=== PATIENT | male | born 1945 | race Caucasian/White ===

== ENCOUNTER 2017-05-04 03:59 | Emergency (ER) | payer MEDICARE ==
[~2017-05-04] VITALS: Ht 185.4 cm; Wt 108.9 kg
[~2017-05-04 03:59] MED LIST: DIOVAN320 MG PO; FLOMAX0.4 MG PO; LEVOTHYROXINE50 MCG PO; MOBIC7.5 MG PO; NORVASC5 MG PO; PENICILLIN V P500 MG PO
[2017-05-04] MEDS ORDERED: HYDROCODONE/APAP 5MG-325MG TAB PO ONE (04:45)
[2017-05-04] MEDS ORDERED: ONDANSETRON HCL 4 MG ORAL DISINTEGRATING TAB PO ONE (04:45)
[2017-05-04 04:55] LABS: BILIRUBIN,URINE NEGATIVE (NEGATIVE); CLARITY,URINE TURBID (CLEAR); COLOR,URINE AMBER (YELLOW); KETONES,URINE NEGATIVE (NEGATIVE); LEUKOCYTE ESTERASE ,URINE 2+ (NEGATIVE); NITRITE,URINE POSITIVE (NEGATIVE); PROTEIN,URINE DIPSTICK 3+ (NEGATIVE); URINE UROBILINOGEN 0.2 mg/dL (0.2 - 1)
[2017-05-04 05:01] LABS: BACTERIA,URINE MANY /HPF; EPITHELIAL CELLS,URINE RARE /LPF; RBC,URINE >50 /HPF (0-5); WBC,URINE (MAN) >50 /HPF (0-5)
[2017-05-04] MEDS ORDERED: CEFTRIAXONE SOD 1 GM VIAL IM ONE (05:15)
[2017-05-04] MEDS ORDERED: LIDOCAINE HCL 1% LOCAL INJ 20 ML VIAL ONE (05:18)
== END 2017-05-04 06:01 | disposition home or self-care (01) ==
LOC: ER 03:59
DX: R30.0 Dysuria (principal); R10.9 Unspecified abdominal pain; N30.01 Acute cystitis with hematuria; F17.210 Nicotine dependence, cigarettes, uncomplicated
CPT/HCPCS: 81001; 87086; 87186; 99282; J0696; J2001

== ENCOUNTER 2017-10-05 20:24 | Emergency (ER) | payer MEDICARE ==
[~2017-10-05] VITALS: Ht 185.4 cm; Wt 108.9 kg
[2017-10-05] MEDS ORDERED: KETOROLAC TROMETHAMINE 30 MG/ML VIAL IV STA (20:33)
[2017-10-05] MEDS ORDERED: ATORVASTATIN CA20 MG PO (20:35)
[2017-10-05 20:55] LABS: BASOPHILS # (AUTO) 0.1 (0.0-0.1); BASOPHILS % 0.5 % (0.0-1.0); EOSINOPHILS # (AUTO) 0.2 (0.0-0.4); EOSINOPHILS % 1.6 % (0.0-6.0); HEMATOCRIT 43.7 % (38.2-49.6); HEMOGLOBIN 14.8 g/dL (14.0-18.0); LYMPHOCYTES # (AUTO) 2.9 (1.0-3.2); LYMPHOCYTES % 21.2 % (18.0-39.1); MEAN CORPUSCULAR HEMOGLOBIN 30.4 pg (28-32); MEAN CORPUSCULAR HGB CONC 33.9 g/dL (31-35); MEAN CORPUSCULAR VOLUME 89.7 fL (81-99); MONOCYTES # (AUTO) 0.8 (0.2-0.8); MONOCYTES % 5.7 % (4.4-11.3); NEUTROPHILS # (AUTO) 9.7 (2.1-6.9); NEUTROPHILS % 70.6 % (38.7-80.0); PLATELET COUNT 208 x10e3/uL (140-360); RED BLOOD COUNT 4.87 x10e6/uL (4.3-5.7); RED CELL DISTRIBUTION WIDTH 13.4 % (11.7-14.4)
[2017-10-05 21:00] LABS: CLARITY,URINE SL CLOUDY (CLEAR); COLOR,URINE YELLOW (YELLOW)
[2017-10-05 21:01] LABS: BILIRUBIN,URINE NEGATIVE (NEGATIVE); KETONES,URINE NEGATIVE (NEGATIVE); LEUKOCYTE ESTERASE ,URINE 1+ (NEGATIVE); NITRITE,URINE NEGATIVE (NEGATIVE); PROTEIN,URINE DIPSTICK TRACE (NEGATIVE); URINE UROBILINOGEN 0.2 mg/dL (0.2 - 1)
[2017-10-05 21:11] LABS: ALANINE AMINOTRANSFERASE 36 IU/L (0-55); ALBUMIN 3.8 g/dL (3.5-5.0); ALBUMIN/GLOBULIN RATIO 1.3 (0.8-2.0); ALKALINE PHOSPHATASE 87 IU/L (40-150); AMORPHOUS SEDIMENT,URINE FEW (FEW); ANION GAP 10.7 mmol/L (8-16); BACTERIA,URINE MANY /HPF; BLOOD UREA NITROGEN 16 mg/dL (7-26); BUN/CREATININE RATIO 22 (6-25); CALCIUM 9.4 mg/dL (8.4-10.2); CARBON DIOXIDE 29 mmol/L (22-29); CHLORIDE 105 mmol/L (98-107); CREATININE, SERUM 0.74 mg/dL (0.72-1.25); EPITHELIAL CELLS,URINE MODERATE /LPF; EST GLOMERULAR FILTRATION RATE > 60 ML/MIN (60-); GLUCOSE 142 mg/dL (74-118); POTASSIUM 3.7 mmol/L (3.5-5.1); SODIUM 141 mmol/L (136-145)
--- NOTE | 2017-10-05 22:27 | Diagnostic Imaging Report ---
EXAM: US TESTICULAR DOPPLER LTD DATE: 10/05/2017 12:00 AM Time stamp on exam: 2133 hours INDICATION: Left testicular swelling and pain COMPARISON: None TECHNIQUE: Grayscale and color Doppler images of the testicles and scrotal contents were obtained. Arterial and venous flow the testicles evaluated with spectral waveform analysis FINDINGS: RIGHT: The right testicle measures 3.5 x 1.9 x 2.6 cm. No testicular masses. Normal flow by color doppler and spectral waveform analysis of the arterial and venous flow. Normal appearance of the epididymis. Moderate right hydrocele with echogenic debris. No varicocele. LEFT: The left testicle measures 2.7 x 2.7 x 2.5 cm. No testicular masses. Normal flow by color doppler and spectral waveform analysis of the arterial and venous flow. Mildly prominent and hypervascular epididymal head. Large hydrocele with echogenic debris. No varicocele. Incidental left epididymal head cyst measuring 9 mm. IMPRESSION: 1. Normal sonographic appearance of the testicles without evidence of torsion. 2. Possible early left epididymitis. 3. Moderate right and large left hydroceles. Signed by: Dr. Jil Benjamin M.D. on 10/05/2017 10:23 PM
[2017-10-05 22:43] VITALS: BP 138/72
[2017-10-05] MEDS ORDERED: LEVAQUIN500 MG PO (22:43)
== END 2017-10-05 22:57 | disposition home or self-care (01) ==
LOC: ER 20:24
DX: N45.1 Epididymitis (principal); N30.01 Acute cystitis with hematuria
CPT/HCPCS: 36415; 76870; 80053; 81001; 85025; 87086; 87186; 93976; 99283; J1885

== ENCOUNTER 2018-07-07 15:53 | Emergency (ER) | payer MEDICARE ==
[~2018-07-07] VITALS: Ht 185.4 cm; Wt 108.9 kg
[~2018-07-07 15:53] MED LIST changes: +ATORVASTATIN CA20 MG PO; +LEVAQUIN500 MG PO
--- OUTSIDE RECORDS SUMMARY | 2018-07-07 15:57 | XMS REPORT | Continuity of Care Document ---
Author Author [facility] Interface Address Unknown Phone Unavailable Problems Problem Status Onset Date Classification Date Reported Comments Source Medications Medication Details Route Status Patient Instructions Ordering Provider Order Date Source Levothyroxine Sodium 50 Mcg Tablet, 50 Mcg Oral Daily Active 10/05/[address] [facility] Meloxicam (Mobic*) 7.5 Mg Tablet, 7.5 Mg Oral Every 12 Hours Active 10/05/[address] [facility] Penicillin V Potassium 500 Mg Tablet, 500 Mg Oral Three Times A Day Active 10/05/[address] [facility] Tamsulosin Hcl (Flomax*) 0.4 Mg Cap, 0.4 Mg Oral Twice A Day Active 10/05/[address] [facility] Amlodipine Besylate (Norvasc) 5 Mg Tab Daily Active [facility] Atorvastatin Calcium 20 Mg Tablet Daily Active [facility] Levofloxacin (Levaquin) 500 Mg Tablet Daily Active [facility] Valsartan (Diovan) 320 Mg Tablet Daily Active [facility] Allergies, Adverse Reactions, Alerts Substance Category Reaction Severity Reaction type Status Date Reported Comments Source No Known Drug Allergies Unknown Allergy to Substance Active 06/16/[address] [facility] Immunizations Immunization Date Given Site Status Last Updated Comments Source Results Order Name Results Value Reference Range Date Interpretation Comments Source Amorphous sediment detection in urine sediment by light microscopy Amorphous sediment detection in urine sediment by light microscopy FEW FEW 10/05/[address] [facility] Automated blood basophil count (count/volume) Automated blood basophil count (count/volume) 0.1 0.0 - 0.1 10/05/[address] [facility] Automated blood basophil count as percentage of total leukocytes Automated blood basophil count as percentage of total leukocytes 0.5 0.0 - 1.0 10/05/[address] [facility] Automated blood eosinophil count Automated blood eosinophil count 0.2 0.0 - 0.4 10/05/[address] [facility] Automated blood eosinophil count as percentage of total leukocytes Automated blood eosinophil count as percentage of total leukocytes 1.6 0.0 - 6.0 10/05/[address] [facility] Automated blood hematocrit (volume fraction) Automated blood hematocrit (volume fraction) 43.7 38.2 - 49.6 10/05/[address] [facility] Automated blood lymphocyte count as percentage ot total leukocytes Automated blood lymphocyte count as percentage ot total leukocytes 21.2 18.0 - 39.1 10/05/[address] [facility] Automated blood monocyte count as percentage of total leukocytes Automated blood monocyte count as percentage of total leukocytes 5.7 4.4 - 11.3 10/05/[address] [facility] Automated blood neutrophil count Automated blood neutrophil count 9.7 2.1 - 6.9 10/05/[address] [facility] Automated blood platelet count (count/volume) Automated blood platelet count (count/volume) 208 140 - 360 10/05/[address] [facility] Automated blood segmented neutrophil count as percentage of total leukocytes Automated blood segmented neutrophil count as percentage of total leukocytes 70.6 38.7 - 80.0 10/05/[address] [facility] Automated erythrocyte mean corpuscular hemoglobin (mass per erythrocyte) Automated erythrocyte mean corpuscular hemoglobin (mass per erythrocyte) 30.4 28 - 32 10/05/[address] [facility] Automated erythrocyte mean corpuscular hemoglobin concentration measurement (mass/volume) Automated erythrocyte mean corpuscular hemoglobin concentration measurement (mass/volume) 33.9 31 - 35 10/05/[address] [facility] Automated erythrocyte mean corpuscular volume Automated erythrocyte mean corpuscular volume 89.7 81 - 99 10/05/[address] [facility] Automated urine sediment leukocyte count by microscopy (number/high power field) Automated urine sediment leukocyte count by microscopy (number/high power field) null 0 - 5 10/05/[address] [facility] Bacteria detection in urine sediment by light microscopy Bacteria detection in urine sediment by light microscopy MANY NONE 10/05/[address] [facility] Blood erythrocytes automated count (number/volume) Blood erythrocytes automated count (number/volume) 4.87 4.3 - 5.7 10/05/[address] [facility] Blood hemoglobin measurement (moles/volume) Blood hemoglobin measurement (moles/volume) 14.8 14.0 - 18.0 10/05/[address] [facility] Blood leukocytes automated count (number/volume) Blood leukocytes automated count (number/volume) 13.79 4.8 - 10.8 10/05/[address] [facility] Blood lymphocytes count (number/volume) Blood lymphocytes count (number/volume) 2.9 1.0 - 3.2 10/05/[address] [facility] Blood monocytes automated count (number/volume) Blood monocytes automated count (number/volume) 0.8 0.2 - 0.8 10/05/[address] [facility] Epithelial cells detection in urine sediment by light microscopy Epithelial cells detection in urine sediment by light microscopy MODERATE NONE 10/05/[address] [facility] Erythrocytes detection in urine sediment by light microscopy Erythrocytes detection in urine sediment by light microscopy null 0 - 5 10/05/[address] [facility] Estimated glomerular filtration rate (GFR) determination Estimated glomerular filtration rate (GFR) determination null 60 10/05/[address] [facility] Glucose measurement Glucose measurement 142 74 - 118 10/05/[address] [facility] Plasma globulin measurement (mass/volume) Plasma globulin measurement (mass/volume) 3.0 2.3 - 3.5 10/05/[address] [facility] Serum or plasma alanine aminotransferase measurement (enzymatic activity/volume) Serum or plasma alanine aminotransferase measurement (enzymatic activity/volume) 36 0 - 55 10/05/[address] [facility] Serum or plasma albumin measurement (mass/volume) Serum or plasma albumin measurement (mass/volume) 3.8 3.5 - 5.0 10/05/[address] [facility] Serum or plasma albumin/globulin mass ratio Serum or plasma albumin/globulin mass ratio 1.3 0.8 - 2.0 10/05/[address] [facility] Serum or plasma alkaline phosphatase measurement (enzymatic activity/volume) Serum or plasma alkaline phosphatase measurement (enzymatic activity/volume) 87 40 - 150 10/05/[address] [facility] Serum or plasma anion gap Serum or plasma anion gap 10.7 8 - 16 10/05/[address] [facility] Serum or plasma calcium measurement (mass/volume) Serum or plasma calcium measurement (mass/volume) 9.4 8.4 - 10.2 10/05/[address] [facility] Serum or plasma carbon dioxide, total measurement (moles/volume) Serum or plasma carbon dioxide, total measurement (moles/volume) 29 22 - 29 10/05/[address] [facility] Serum or plasma chloride measurement (moles/volume) Serum or plasma chloride measurement (moles/volume) 105 98 - 107 10/05/[address] [facility] Serum or plasma creatinine measurement (mass/volume) Serum or plasma creatinine measurement (mass/volume) 0.74 0.72 - 1.25 10/05/[address] [facility] Serum or plasma potassium measurement (moles/volume) Serum or plasma potassium measurement (moles/volume) 3.7 3.5 - 5.1 10/05/[address] [facility] Serum or plasma protein measurement (mass/volume) Serum or plasma protein measurement (mass/volume) 6.8 6.5 - 8.1 10/05/[address] [facility] Serum or plasma sodium measurement (moles/volume) Serum or plasma sodium measurement (moles/volume) 141 136 - 145 10/05/[address] [facility] Serum or plasma total bilirubin measurement (mass/volume) Serum or plasma total bilirubin measurement (mass/volume) 0.4 0.2 - 1.2 10/05/[address] [facility] Serum or plasma urea nitrogen measurement (mass/volume) Serum or plasma urea nitrogen measurement (mass/volume) 16 7 - 26 10/05/[address] [facility] Serum or plasma urea nitrogen/creatinine mass ratio Serum or plasma urea nitrogen/creatinine mass ratio 22 6 - 25 10/05/[address] [facility] Specific gravity of Urine by Test strip Specific gravity of Urine by Test strip 1.015 1.010 - 1.025 10/05/[address] [facility] Urine clarity Urine clarity SL CLOUDY CLEAR 10/05/[address] [facility] Urine color determination Urine color determination YELLOW YELLOW 10/05/[address] [facility] Urine erythrocytes detection Urine erythrocytes detection 1+ NEGATIVE 10/05/[address] [facility] Urine glucose detection Urine glucose detection NEGATIVE NEGATIVE 10/05/[address] [facility] Urine ketones detection by automated test strip Urine ketones detection by automated test strip NEGATIVE NEGATIVE 10/05/[address] [facility] Urine leukocyte esterase detection by dipstick Urine leukocyte esterase detection by dipstick 1+ NEGATIVE 10/05/[address] [facility] Urine nitrite detection Urine nitrite detection NEGATIVE NEGATIVE 10/05/[address] [facility] Urine pH measurement by automated test strip Urine pH measurement by automated test strip 7 5 - 7 10/05/[address] [facility] Urine protein measurement by test strip (mass/volume) Urine protein measurement by test strip (mass/volume) TRACE NEGATIVE 10/05/[address] [facility] Urine total bilirubin measurement (mass/volume) Urine total bilirubin measurement (mass/volume) NEGATIVE NEGATIVE 10/05/[address] [facility] Urine urobilinogen measurement by test strip (mass/volume) Urine urobilinogen measurement by test strip (mass/volume) 0.2 0.2 - 1 10/05/[address] [facility] Red Cell Distribution Width 13.4 11.7 - 14.4 10/05/[address] [facility] IM GRANULOCYTES % 0.4 0.0 - 1.0 10/05/[address] [facility] Absolute Immature Granulocyte (auto 0.05 0 - 0.1 10/05/[address] [facility] Aspartate Amino Transf (AST/SGOT) 26 5 - 34 10/05/[address] [facility] Bacterial urine culture Bacterial urine culture Urine Culture [facility] Vital Signs Vital Sign Value Date Comments Source Encounters Location Location Details Encounter Type Encounter Number Reason For Visit Attending Provider ADM Date DC Date Status Source Departed Emergency Room [id number] EM CABRERA MD 05/04/2017 05/04/[address] [facility] Departed Emergency Room [id number] DEYSI JUSTIN MD 10/05/2017 10/05/[address] [facility] Procedures Procedure Code Date Perfomer Comments Source Dup-scan artl liudmila abdl/pel/scrot&/RPR orgn lmt [id number] 10/05/[address] [facility] Testicular ultrasound [id number] 10/05/[address] [facility]
--- OUTSIDE RECORDS SUMMARY | 2018-07-07 15:57 | XMS REPORT ---
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 Allergies, Adverse Reactions, Alerts This patient has no known allergies or adverse reactions. Medications This patient has no known medications. Results Test Description Test Time Test Comments Text Results Atomic Results Result Comments US TESTICULAR DOPPLER LTD 2017-10-05 22:20:00 [place] [id number] Patient Name: ANGELICA GILLILAND MR #: [id number] : 1945 Age/Sex: 71/M Req #: [id number] [facility] Physician: Ordered by: DEYSI JUSTIN MD Report #: [id number] Location: ER Room/Bed: Procedure: [id number] US/US TESTICULAR DOPPLER LTD Exam Date: 10/05/17 Exam Time: 2129 REPORT STATUS: Signed EXAM: US TESTICULAR DOPPLER LTD DATE: 10/05/2017 12:00 AM Time stamp on exam: 2133 hours INDICATION: Left testicular swelling and pain COMPARISON: None TECHNIQUE: Grayscale and color Doppler images of the testicles and scrotal contents were obtained. Arterial and venous flow the testicles evaluated with spectral waveform analysis FINDINGS: RIGHT: The right testicle measures 3.5 x 1.9 x 2.6 cm. No testicular masses. Normal flow by color doppler and spectral waveform analysis of the arterial and venous flow. Normal appearance of the epididymis. Moderate right hydrocele with echogenic debris. No varicocele. LEFT: The left testicle measures 2.7 x 2.7 x 2.5 cm. No testicular masses. Normal flow by color doppler and spectral waveform analysis of the arterial and venous flow. Mildly prominent and hypervascular epididymal head. Large hydrocele with echogenic debris. No varicocele. Incidental left epididymal head cyst measuring 9 mm. IMPRESSION: 1. Normal sonographic appearance of the testicles without evidence of torsion. 2. Possible early left epididymitis. 3. Moderate right and large left hydroceles. Signed by: Dr. Maribeth Benjamin M.D. on 10/05/2017 10:23 PM Dictated By: MARIBETH BENJAMIN MD 1038 Transcribed By: QUINTON on 10/07/17 1038 COPY TO: DEYSI JUSTIN MD TESTICULAR 2017-10-05 22:20:00 [place] [id number] Patient Name: ANGELICA GILLILAND MR #: [id number] : 1945 Age/Sex: 71/M Req #: [id number] Adm Physician: Ordered by: DEYSI JUSTIN MD Report #: [id number] Location: ER Room/Bed: Procedure: [id number] US/US TESTICULAR Exam Date: 10/05/17 Exam Time: 2129 REPORT STATUS: Signed EXAM: US TESTICULAR DOPPLER LTD DATE: 10/05/2017 12:00 AM Time stamp on exam: 2133 hours INDICATION: Left testicular swelling and pain COMPARISON: None TECHNIQUE: Grayscale and color Doppler images of the testicles and scrotal contents were obtained. Arterial and venous flow the testicles evaluated with spectral waveform analysis FINDINGS: RIGHT: The right testicle measures 3.5 x 1.9 x 2.6 cm. No testicular masses. Normal flow by color doppler and spectral waveform analysis of the arterial and venous flow. Normal appearance of the epididymis. Moderate right hydrocele with echogenic debris. No varicocele. LEFT: The left testicle measures 2.7 x 2.7 x 2.5 cm. No testicular masses. Normal flow by color doppler and spectral waveform analysis of the arterial and venous flow. Mildly prominent a nd hypervascular epididymal head. Large hydrocele with echogenic debris. No varicocele. Incidental left epididymal head cyst measuring 9 mm.
[2018-07-07 16:20] LABS: BASOPHILS % 0.2 % (0.0-1.0); EOSINOPHILS # (AUTO) 0.2 (0.0-0.4); EOSINOPHILS % 1.8 % (0.0-6.0); HEMATOCRIT 47.5 % (38.2-49.6); HEMOGLOBIN 15.7 g/dL (14.0-18.0); LYMPHOCYTES # (AUTO) 1.6 (1.0-3.2); LYMPHOCYTES % 15.6 % (18.0-39.1); MEAN CORPUSCULAR HEMOGLOBIN 30.3 pg (28-32); MEAN CORPUSCULAR HGB CONC 33.1 g/dL (31-35); MEAN CORPUSCULAR VOLUME 91.5 fL (81-99); MONOCYTES # (AUTO) 0.6 (0.2-0.8); MONOCYTES % 6.3 % (4.4-11.3); NEUTROPHILS # (AUTO) 7.6 (2.1-6.9); NEUTROPHILS % 75.8 % (38.7-80.0); PLATELET COUNT 223 x10e3/uL (140-360); RED BLOOD COUNT 5.19 x10e6/uL (4.3-5.7); RED CELL DISTRIBUTION WIDTH 13.7 % (11.7-14.4)
[2018-07-07 16:35] LABS: ALANINE AMINOTRANSFERASE 29 IU/L (0-55); ALBUMIN 3.6 g/dL (3.5-5.0); ALBUMIN/GLOBULIN RATIO 1.2 (0.8-2.0); ALKALINE PHOSPHATASE 64 IU/L (40-150); ANION GAP 10.6 mmol/L (8-16); BLOOD UREA NITROGEN 18 mg/dL (7-26); BUN/CREATININE RATIO 21 (6-25); CALCIUM 8.2 mg/dL (8.4-10.2); CARBON DIOXIDE 32 mmol/L (22-29); CHLORIDE 103 mmol/L (98-107); CREATININE, SERUM 0.87 mg/dL (0.72-1.25); EST GLOMERULAR FILTRATION RATE > 60 ML/MIN (60-); GLUCOSE 108 mg/dL (74-118); LIPASE 16 U/L (8-78); POTASSIUM 3.6 mmol/L (3.5-5.1); SODIUM 142 mmol/L (136-145)
[2018-07-07 16:45] LABS: AMYLASE 43 U/L (25-125)
--- NOTE | 2018-07-07 18:45 | Diagnostic Imaging Report ---
EXAMINATION: CT of the abdomen and pelvis with contrast. TECHNIQUE: Spiral CT images of the abdomen and pelvis were performed from the lung bases to the lesser trochanters after the intravenous administration of 100 cc of Isovue 370. Coronal and sagittal reformatted images were obtained. COMPARISON: None. CLINICAL HISTORY:Nausea vomiting diarrhea and a 72-year-old male DISCUSSION: ABDOMEN/PELVIS: LOWER THORAX:Unremarkable. HEPATOBILIARY: No focal hepatic lesions. No intra or extrahepatic biliary ductal dilation. GALLBLADDER: No radio-opaque stones or sludge. No wall thickening. SPLEEN: No splenomegaly. PANCREAS: No focal masses or ductal dilatation. ADRENALS: Tiny nodule on the left adrenal gland measuring up to 6 mm is nonspecific. KIDNEYS/URETERS: No hydronephrosis, stones, or solid mass lesions. Bilateral parapelvic cysts. PELVIC ORGANS/BLADDER: The bladder is normal. PERITONEUM/RETROPERITONEUM: No free air or fluid. LYMPH NODES: No intra-abdominal, retroperitoneal, pelvic or inguinal lymphadenopathy. VESSELS: The celiac trunk,superior and inferior mesenteric and bilateral renal arteries are patent The portal, superior mesenteric and splenic veins are patent. GI TRACT: Mildly distended stomach. No bowel wall thickening. BONES AND SOFT TISSUE: No bony destructive lesions. Bilateral L5 pars defects with grade 1 anterolisthesis of L5 on S1. Severe degenerative disc height loss at L5-S1 with proliferative osteophytosis at that level. 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 No soft tissue abnormalities. IMPRESSION: No acute intra-abdominal process is identified. Mildly distended stomach, clinical correlation can be made for delayed gastric emptying on a nonemergent basis. 6 mm enhancing left adrenal nodule is nonspecific and in the absence of any known malignancy, statistically this would represent an adenoma. If desired, a repeat study in one year could be performed. Signed by: Edmund Carrillo MD on 07/07/2018 6:42 PM
[2018-07-07 19:11] LABS: BILIRUBIN,URINE NEGATIVE (NEGATIVE); CLARITY,URINE SL CLOUDY (CLEAR); COLOR,URINE YELLOW (YELLOW); KETONES,URINE NEGATIVE (NEGATIVE); LEUKOCYTE ESTERASE ,URINE NEGATIVE (NEGATIVE); NITRITE,URINE NEGATIVE (NEGATIVE); PROTEIN,URINE DIPSTICK 1+ (NEGATIVE); URINE UROBILINOGEN 0.2 mg/dL (0.2 - 1)
[2018-07-07 19:24] LABS: BACTERIA,URINE FEW /HPF; EPITHELIAL CELLS,URINE RARE /LPF; TRIPLE PHOSPHATE CRYSTAL,UR FEW (FEW)
[2018-07-07] MEDS ORDERED: ONDANSETRON HCL INJ 2MG/ML 2ML 2 MG/ML VIAL IV STA (19:33)
[2018-07-07] MEDS ORDERED: MORPHINE SULFATE INJ 4 MG/ML INJ 1ML IV ONE (19:50)
[2018-07-07 22:19] VITALS: BP 110/65
[2018-07-07] MEDS ORDERED: IOPAMIDOL 370 MG/ML 200 ML INFUS..BTL INJ ONE (22:25)
[2018-07-07] MEDS ORDERED: SODIUM CHLORIDE 0.9% 50ML 50 ML ONE (22:25)
== END 2018-07-07 22:25 | disposition home or self-care (01) ==
LOC: ER 15:53
DX: R10.33 Periumbilical pain (principal); R11.2 Nausea with vomiting, unspecified; R19.7 Diarrhea, unspecified; A08.4 Viral intestinal infection, unspecified; I10 Essential (primary) hypertension; E78.5 Hyperlipidemia, unspecified
CPT/HCPCS: 36415; 74177; 80053; 81001; 82150; 83690; 85025; 99284; J2270; J2405; Q9967

== ENCOUNTER 2018-10-29 05:00 | Inpatient (IN) | payer MEDICARE ==
[2018-10-27 11:36] LABS: BASOPHILS # (AUTO) 0.1 (0.0-0.1); BASOPHILS % 0.9 % (0.0-1.0); EOSINOPHILS # (AUTO) 0.2 (0.0-0.4); EOSINOPHILS % 2.1 % (0.0-6.0); HEMATOCRIT 46.3 % (38.2-49.6); HEMOGLOBIN 15.1 g/dL (14.0-18.0); LYMPHOCYTES % 27.2 % (18.0-39.1); MEAN CORPUSCULAR HEMOGLOBIN 29.8 pg (28-32); MEAN CORPUSCULAR HGB CONC 32.6 g/dL (31-35); MEAN CORPUSCULAR VOLUME 91.3 fL (81-99); MONOCYTES # (AUTO) 0.6 (0.2-0.8); MONOCYTES % 8.4 % (4.4-11.3); NEUTROPHILS # (AUTO) 4.5 (2.1-6.9); NEUTROPHILS % 60.7 % (38.7-80.0); PLATELET COUNT 234 x10e3/uL (140-360); RED BLOOD COUNT 5.07 x10e6/uL (4.3-5.7); RED CELL DISTRIBUTION WIDTH 13.6 % (11.7-14.4)
--- NOTE | 2018-10-27 11:39 | Diagnostic Imaging Report ---
EXAMINATION: CHEST 2 VIEWS INDICATION: Preoperative COMPARISON: FINDINGS: TUBES and LINES: None. LUNGS: The lung volumes are normal. No focal consolidation or pulmonary edema. PLEURA: No pleural effusion or pneumothorax. HEART AND MEDIASTINUM: The cardiomediastinal silhouette is normal in size and contour. BONES AND SOFT TISSUES: No acute fracture or dislocation. UPPER ABDOMEN: No free air under the diaphragm. IMPRESSION: No focal pneumonia or pulmonary edema Signed by: Kat Greene MD on 10/27/2018 11:35 AM
[2018-10-27 11:56] LABS: ANION GAP 11.4 mmol/L (8-16); BLOOD UREA NITROGEN 14 mg/dL (7-26); BUN/CREATININE RATIO 18 (6-25); CALCIUM 9.7 mg/dL (8.4-10.2); CARBON DIOXIDE 33 mmol/L (22-29); CHLORIDE 99 mmol/L (98-107); CREATININE, SERUM 0.78 mg/dL (0.72-1.25); EST GLOMERULAR FILTRATION RATE > 60 ML/MIN (60-); GLUCOSE 94 mg/dL (74-118); POTASSIUM 4.4 mmol/L (3.5-5.1); SODIUM 139 mmol/L (136-145)
[~2018-10-29] VITALS: Ht 190.5 cm; Wt 111.1 kg
[~2018-10-29 05:00] MED LIST changes: +LOSARTAN POTAS100 MG PO
[2018-10-29] MEDS ORDERED: CEFTRIAXONE SOD 1 GM/NS 50 ML 50 ML IV ONE (05:14)
--- OUTSIDE RECORDS SUMMARY | 2018-10-29 05:14 | XMS REPORT | Continuity of Care Document ---
Author Author [employer] Address Unknown Phone Unavailable Care Team Providers [employer] Director Name Role Phone [facility] [employer] Unavailable Unavailable Problems No Data Provided for This Section Medications Medication Details Route Status Patient Instructions Ordering Provider Order Date Source Levothyroxine Sodium 50 Mcg Tablet, 50 Mcg Oral Daily Active 10/05/2017 [facility] Meloxicam (Mobic*) 7.5 Mg Tablet, 7.5 Mg Oral Every 12 Hours Active 10/05/2017 [facility] Penicillin V Potassium 500 Mg Tablet, 500 Mg Oral Three Times A Day Active 10/05/2017 [facility] Tamsulosin Hcl (Flomax*) 0.4 Mg Cap, 0.4 Mg Oral Twice A Day Active 10/05/2017 [facility] Amlodipine Besylate (Norvasc) 5 Mg Tab Daily Active [facility] Atorvastatin Calcium 20 Mg Tablet Daily Active [facility] Levofloxacin (Levaquin) 500 Mg Tablet Daily Active [facility] Valsartan (Diovan) 320 Mg Tablet Daily Active [facility] Atorvastatin Calcium 20 Mg Tablet Daily Active [facility] Levofloxacin (Levaquin) 500 Mg Tablet Daily Active [facility] Allergies, Adverse Reactions, Alerts Substance Category Reaction Severity Reaction type Status Date Reported Comments Source No Known Drug Allergies Unknown Allergy to Substance Active 07/07/2018 [facility] Immunizations No Data Provided for This Section Results Order Name Results Value Reference Range Date Interpretation Comments Source Urine color determination YELLOW YELLOW 07/07/2018 [facility] Urine clarity SL CLOUDY CLEAR 07/07/2018 [facility] Specific gravity of Urine by Test strip 1.015 1.010 - 1.025 07/07/2018 [facility] Urine pH measurement by automated test strip 8 5 - 7 07/07/2018 [facility] Urine leukocyte esterase detection by dipstick NEGATIVE NEGATIVE 07/07/2018 [facility] Urine nitrite detection NEGATIVE NEGATIVE 07/07/2018 [facility] Urine protein measurement by test strip (mass/volume) 1+ NEGATIVE 07/07/2018 [facility] Urine glucose detection NEGATIVE NEGATIVE 07/07/2018 [facility] Urine ketones detection by automated test strip NEGATIVE NEGATIVE 07/07/2018 [facility] Urine urobilinogen measurement by test strip (mass/volume) 0.2 0.2 - 1 07/07/2018 [facility] Urine total bilirubin measurement (mass/volume) NEGATIVE NEGATIVE 07/07/2018 [facility] Urine erythrocytes detection NEGATIVE NEGATIVE 07/07/2018 [facility] Automated urine sediment leukocyte count by microscopy (number/high power field) NONE 0 - 5 07/07/2018 [facility] Erythrocytes detection in urine sediment by light microscopy NONE 0 - 5 07/07/2018 [facility] Bacteria detection in urine sediment by light microscopy FEW NONE 07/07/2018 [facility] Epithelial cells detection in urine sediment by light microscopy RARE NONE 07/07/2018 [facility] Triple phosphate crystals detection in urine sediment by light microscopy FEW FEW 07/07/2018 [facility] Blood leukocytes automated count (number/volume) 9.97 4.8 - 10.8 07/07/2018 [facility] Blood erythrocytes automated count (number/volume) 5.19 4.3 - 5.7 07/07/2018 [facility] Blood hemoglobin measurement (moles/volume) 15.7 14.0 - 18.0 07/07/2018 [facility] Automated blood hematocrit (volume fraction) 47.5 38.2 - 49.6 07/07/2018 [facility] Automated erythrocyte mean corpuscular volume 91.5 81 - 99 07/07/2018 [facility] Automated erythrocyte mean corpuscular hemoglobin (mass per erythrocyte) 30.3 28 - 32 07/07/2018 [facility] Automated erythrocyte mean corpuscular hemoglobin concentration measurement (mass/volume) 33.1 31 - 35 07/07/2018 [facility] RDW BldCo-Rto 13.7 11.7 - 14.4 07/07/2018 [facility] Automated blood platelet count (count/volume) 223 140 - 360 07/07/2018 [facility] Automated blood segmented neutrophil count as percentage of total leukocytes 75.8 38.7 - 80.0 07/07/2018 [facility] Automated blood lymphocyte count as percentage ot total leukocytes 15.6 18.0 - 39.1 07/07/2018 [facility] Automated blood monocyte count as percentage of total leukocytes 6.3 4.4 - 11.3 07/07/2018 [facility] Automated blood eosinophil count as percentage of total leukocytes 1.8 0.0 - 6.0 07/07/2018 [facility] Automated blood basophil count as percentage of total leukocytes 0.2 0.0 - 1.0 07/07/2018 [facility] IM GRANULOCYTES % 0.3 0.0 - 1.0 07/07/2018 [facility] Automated blood neutrophil count 7.6 2.1 - 6.9 07/07/2018 [facility] Blood lymphocytes count (number/volume) 1.6 1.0 - 3.2 07/07/2018 [facility] Blood monocytes automated count (number/volume) 0.6 0.2 - 0.8 07/07/2018 [facility] Automated blood eosinophil count 0.2 0.0 - 0.4 07/07/2018 [facility] Automated blood basophil count (count/volume) 0.0 0.0 - 0.1 07/07/2018 [facility] Absolute Immature Granulocyte (auto 0.03 0 - 0.1 07/07/2018 [facility] Serum or plasma sodium measurement (moles/volume) 142 136 - 145 07/07/2018 [facility] Serum or plasma potassium measurement (moles/volume) 3.6 3.5 - 5.1 07/07/2018 [facility] Serum or plasma chloride measurement (moles/volume) 103 98 - 107 07/07/2018 [facility] Serum or plasma carbon dioxide, total measurement (moles/volume) 32 22 - 29 07/07/2018 [facility] Serum or plasma anion gap 10.6 8 - 16 07/07/2018 [facility] Serum or plasma urea nitrogen measurement (mass/volume) 18 7 - 26 07/07/2018 [facility] Serum or plasma creatinine measurement (mass/volume) 0.87 0.72 - 1.25 07/07/2018 [facility] Serum or plasma urea nitrogen/creatinine mass ratio 21 6 - 25 07/07/2018 [facility] Estimated glomerular filtration rate (GFR) determination > 60 60 07/07/2018 [facility] Glucose measurement 108 74 - 118 07/07/2018 [facility] Serum or plasma calcium measurement (mass/volume) 8.2 8.4 - 10.2 07/07/2018 [facility] Serum or plasma total bilirubin measurement (mass/volume) 0.6 0.2 - 1.2 07/07/2018 [facility] Aspartate Amino Transf (AST/SGOT) 22 5 - 34 07/07/2018 [facility] Serum or plasma alanine aminotransferase measurement (enzymatic activity/volume) 29 0 - 55 07/07/2018 [facility] Serum or plasma protein measurement (mass/volume) 6.7 6.5 - 8.1 07/07/2018 [facility] Serum or plasma albumin measurement (mass/volume) 3.6 3.5 - 5.0 07/07/2018 [facility] Plasma globulin measurement (mass/volume) 3.1 2.3 - 3.5 07/07/2018 [facility] Serum or plasma albumin/globulin mass ratio 1.2 0.8 - 2.0 07/07/2018 [facility] Serum or plasma alkaline phosphatase measurement (enzymatic activity/volume) 64 40 - 150 07/07/2018 [facility] Serum or plasma amylase measurement (enzymatic activity/volume) 43 25 - 125 07/07/2018 [facility] Serum or plasma lipase measurement (enzymatic activity/volume) 16 8 - 78 07/07/2018 [facility] Amorphous sediment detection in urine sediment by light microscopy FEW FEW 10/05/2017 [facility] Amorphous sediment detection in urine sediment by light microscopy Amorphous sediment detection in urine sediment by light microscopy FEW FEW 10/05/2017 [facility] Automated blood basophil count (count/volume) Automated blood basophil count (count/volume) 0.1 0.0 - 0.1 10/05/2017 [facility] Automated blood basophil count as percentage of total leukocytes Automated blood basophil count as percentage of total leukocytes 0.5 0.0 - 1.0 10/05/2017 [facility] Automated blood eosinophil count Automated blood eosinophil count 0.2 0.0 - 0.4 10/05/2017 [facility] Automated blood eosinophil count as percentage of total leukocytes Automated blood eosinophil count as percentage of total leukocytes 1.6 0.0 - 6.0 10/05/2017 [facility] Automated blood hematocrit (volume fraction) Automated blood hematocrit (volume fraction) 43.7 38.2 - 49.6 10/05/2017 [facility] Automated blood lymphocyte count as percentage ot total leukocytes Automated blood lymphocyte count as percentage ot total leukocytes 21.2 18.0 - 39.1 10/05/2017 [facility] Automated blood monocyte count as percentage of total leukocytes Automated blood monocyte count as percentage of total leukocytes 5.7 4.4 - 11.3 10/05/2017 [facility] Automated blood neutrophil count Automated blood neutrophil count 9.7 2.1 - 6.9 10/05/2017 [facility] Automated blood platelet count (count/volume) Automated blood platelet count (count/volume) 208 140 - 360 10/05/2017 [facility] Automated blood segmented neutrophil count as percentage of total leukocytes Automated blood segmented neutrophil count as percentage of total leukocytes 70.6 38.7 - 80.0 10/05/2017 [facility] Automated erythrocyte mean corpuscular hemoglobin (mass per erythrocyte) Automated erythrocyte mean corpuscular hemoglobin (mass per erythrocyte) 30.4 28 - 32 10/05/2017 [facility] Automated erythrocyte mean corpuscular hemoglobin concentration measurement (mass/volume) Automated erythrocyte mean corpuscular hemoglobin concentration measurement (mass/volume) 33.9 31 - 35 10/05/2017 [facility] Automated erythrocyte mean corpuscular volume Automated erythrocyte mean corpuscular volume 89.7 81 - 99 10/05/2017 [facility] Automated urine sediment leukocyte count by microscopy (number/high power field) Automated urine sediment leukocyte count by microscopy (number/high power field) <20 0 - 5 10/05/2017 [facility] Bacteria detection in urine sediment by light microscopy Bacteria detection in urine sediment by light microscopy MANY NONE 10/05/2017 [facility] Blood erythrocytes automated count (number/volume) Blood erythrocytes automated count (number/volume) 4.87 4.3 - 5.7 10/05/2017 [facility] Blood hemoglobin measurement (moles/volume) Blood hemoglobin measurement (moles/volume) 14.8 14.0 - 18.0 10/05/2017 [facility] Blood leukocytes automated count (number/volume) Blood leukocytes automated count (number/volume) 13.79 4.8 - 10.8 10/05/2017 [facility] Blood lymphocytes count (number/volume) Blood lymphocytes count (number/volume) 2.9 1.0 - 3.2 10/05/2017 [facility] Blood monocytes automated count (number/volume) Blood monocytes automated count (number/volume) 0.8 0.2 - 0.8 10/05/2017 [facility] Epithelial cells detection in urine sediment by light microscopy Epithelial cells detection in urine sediment by light microscopy MODERATE NONE 10/05/2017 [facility] Erythrocytes detection in urine sediment by light microscopy Erythrocytes detection in urine sediment by light microscopy <10 0 - 5 10/05/2017 [facility] Estimated glomerular filtration rate (GFR) determination Estimated glomerular filtration rate (GFR) determination >60 60 10/05/2017 [facility] Glucose measurement Glucose measurement 142 74 - 118 10/05/2017 [facility] Plasma globulin measurement (mass/volume) Plasma globulin measurement (mass/volume) 3.0 2.3 - 3.5 10/05/2017 [facility] Serum or plasma alanine aminotransferase measurement (enzymatic activity/volume) Serum or plasma alanine aminotransferase measurement (enzymatic activity/volume) 36 0 - 55 10/05/2017 [facility] Serum or plasma albumin measurement (mass/volume) Serum or plasma albumin measurement (mass/volume) 3.8 3.5 - 5.0 10/05/2017 [facility] Serum or plasma albumin/globulin mass ratio Serum or plasma albumin/globulin mass ratio 1.3 0.8 - 2.0 10/05/2017 [facility] Serum or plasma alkaline phosphatase measurement (enzymatic activity/volume) Serum or plasma alkaline phosphatase measurement (enzymatic activity/volume) 87 40 - 150 10/05/2017 [facility] Serum or plasma anion gap Serum or plasma anion gap 10.7 8 - 16 10/05/2017 [facility] Serum or plasma calcium measurement (mass/volume) Serum or plasma calcium measurement (mass/volume) 9.4 8.4 - 10.2 10/05/2017 [facility] Serum or plasma carbon dioxide, total measurement (moles/volume) Serum or plasma carbon dioxide, total measurement (moles/volume) 29 22 - 29 10/05/2017 [facility] Serum or plasma chloride measurement (moles/volume) Serum or plasma chloride measurement (moles/volume) 105 98 - 107 10/05/2017 [facility] Serum or plasma creatinine measurement (mass/volume) Serum or plasma creatinine measurement (mass/volume) 0.74 0.72 - 1.25 10/05/2017 [facility] Serum or plasma potassium measurement (moles/volume) Serum or plasma potassium measurement (moles/volume) 3.7 3.5 - 5.1 10/05/2017 [facility] Serum or plasma protein measurement (mass/volume) Serum or plasma protein measurement (mass/volume) 6.8 6.5 - 8.1 10/05/2017 [facility] Serum or plasma sodium measurement (moles/volume) Serum or plasma sodium measurement (moles/volume) 141 136 - 145 10/05/2017 [facility] Serum or plasma total bilirubin measurement (mass/volume) Serum or plasma total bilirubin measurement (mass/volume) 0.4 0.2 - 1.2 10/05/2017 [facility] Serum or plasma urea nitrogen measurement (mass/volume) Serum or plasma urea nitrogen measurement (mass/volume) 16 7 - 26 10/05/2017 [facility] Serum or plasma urea nitrogen/creatinine mass ratio Serum or plasma urea nitrogen/creatinine mass ratio 22 6 - 25 10/05/2017 [facility] Specific gravity of Urine by Test strip Specific gravity of Urine by Test strip 1.015 1.010 - 1.025 10/05/2017 [facility] Urine clarity Urine clarity SL CLOUDY CLEAR 10/05/2017 [facility] Urine color determination Urine color determination YELLOW YELLOW 10/05/2017 [facility] Urine erythrocytes detection Urine erythrocytes detection 1+ NEGATIVE 10/05/2017 [facility] Urine glucose detection Urine glucose detection NEGATIVE NEGATIVE 10/05/2017 [facility] Urine ketones detection by automated test strip Urine ketones detection by automated test strip NEGATIVE NEGATIVE 10/05/2017 [facility] Urine leukocyte esterase detection by dipstick Urine leukocyte esterase detection by dipstick 1+ NEGATIVE 10/05/2017 [facility] Urine nitrite detection Urine nitrite detection NEGATIVE NEGATIVE 10/05/2017 [facility] Urine pH measurement by automated test strip Urine pH measurement by automated test strip 7 5 - 7 10/05/2017 [facility] Urine protein measurement by test strip (mass/volume) Urine protein measurement by test strip (mass/volume) TRACE NEGATIVE 10/05/2017 [facility] Urine total bilirubin measurement (mass/volume) Urine total bilirubin measurement (mass/volume) NEGATIVE NEGATIVE 10/05/2017 [facility] Urine urobilinogen measurement by test strip (mass/volume) Urine urobilinogen measurement by test strip (mass/volume) 0.2 0.2 - 1 10/05/2017 [facility] Red Cell Distribution Width 13.4 11.7 - 14.4 10/05/2017 [facility] IM GRANULOCYTES % 0.4 0.0 - 1.0 10/05/2017 [facility] Absolute Immature Granulocyte (auto 0.05 0 - 0.1 10/05/2017 [facility] Aspartate Amino Transf (AST/SGOT) 26 5 - 34 10/05/2017 [facility] Bacterial urine culture Urine Culture [facility] Pathology Reports No Data Provided for This Section Diagnostic Reports No Data Provided for This Section Consultation Notes No Data Provided for This Section Discharge Summaries No Data Provided for This Section History and Physicals No Data Provided for This Section Vital Signs No Data Provided for This Section Encounters Location Location Details Encounter Type Encounter Number Reason For Visit Attending Provider ADM Date DC Date Status Source Departed Emergency Room [id number] EM CABRERA MD 05/04/2017 05/04/2017 [facility] Departed Emergency Room [id number] DEYSI JUSTIN MD 10/05/2017 10/05/2017 [facility] Departed Emergency Room [id number] JAIRO ESPINO MD 07/07/2018 07/07/2018 [facility] Procedures Procedure Code Date Perfomer Comments Source Computed tomography of abdomen and pelvis with contrast [id number] 07/07/2018 DANISH [facility] Dup-scan artl liudmila abdl/pel/scrot&/[place] [id number] 10/05/2017 [facility] Testicular ultrasound [id number] 10/05/2017 [facility] Assessment and Plan No Data Provided for This Section Plan of Care Plan of Care Date Source Discharge Date 07/07/18 10:25pm Disposition HOME, SELF-CARE Condition at Discharge Stable Instructions/Education Provided Abdominal Pain - Adult Diarrhea - Adult Vomiting - Adult Forms Provided Work/School Excuse Prescriptions See Medication Section Referrals ARIEL VARNER MD () Address: [address], [place] [id number] Additional Instructions/Education Follow-up with PCP in 2 days if symptoms have not improved. Return to ER for new or worsening symptoms including but not limited to continued vomiting not improved with medications, dizziness, weakness, abdominal pain or fever not improved with tylenol or motrin. 07/07/2018 [facility] Discharge Date 10/05/17 10:57pm Disposition HOME, SELF-CARE Condition at Discharge Stable Instructions/Education Provided Epididymitis Hematuria - Male Urinary Tract Infection - Men Forms Provided Work/School Excuse Prescriptions See Medication Section Referrals ANDREW ANTONIO MD Address: [address] [place] [id number] Note: KEEP APPOINTMENT DIRECTED Additional Instructions/Education TAKE ANTIBIOTICS DIRECTED. 10/05/2017 [facility] Social History Social History Date Source Smoking Status Start Date Stop Date Never Smoker 07/07/2018 [facility] Family History No Data Provided for This Section Advance Directives Order Name Results Value Date Source Advance Directives Advance Directives Directive Response Recorded Date/Time Does the patient have an advance directive? No 05/20/07 12:10pm If yes, is advance directive on file with [facility]? No 05/21/07 7:31am If not on file with [facility] will patient provide a copy? No 05/04/17 4:57am Do you have a Directive to Physician? No 07/07/18 8:03pm Do you have a Medical Power of Manager [employer]? No 07/07/18 8:03pm Do you have an out of hospital Do Not Resuscitate Order? No 07/07/18 8:03pm Do you have any special needs we should be aware of? No 07/07/18 8:03pm Do you have a support person here with you today? Yes 07/07/18 8:03pm Did patient receive Notice of Privacy Practices? Yes 07/07/18 8:03pm Did patient receive patient rights and responsibilities? Yes 07/07/18 8:03pm 07/07/2018 [facility] Advance Directives Advance Directives Directive Response Recorded Date/Time Does the patient have an advance directive? No 05/20/07 12:10pm If yes, is advance directive on file with [facility]? No 05/21/07 7:31am If not on file with [facility] will patient provide a copy? No 05/04/17 4:57am Do you have a Directive to Physician? No 10/05/17 8:22pm Do you have a Medical Power of Manager [employer]? No 10/05/17 8:22pm Do you have an out of hospital Do Not Resuscitate Order? No 10/05/17 8:22pm Do you have any special needs we should be aware of? No 10/05/17 8:22pm Do you have a support person here with you today? Yes 10/05/17 8:22pm Did patient receive Notice of Privacy Practices? Yes 10/05/17 8:22pm Did patient receive patient rights and responsibilities? Yes 10/05/17 8:22pm 10/05/2017 [facility] Functional Status No Data Provided for This Section
[2018-10-29] MEDS ORDERED: GENTAMICIN 80MG/NS 100 ML 100 ML IV ONE (05:15)
[2018-10-29] MEDS ORDERED: B&O 60MG R/S 60 MG SUPP PR ONE (06:36)
[2018-10-29] MEDS ORDERED: IOPAMIDOL 610MG/1ML 300 MG/ML VIAL IV ONE (06:36)
[2018-10-29] MEDS ORDERED: FENTANYL CITRATE/PF 100MCG/2 ML INJ ONE ×2 (09:18→18:36)
[2018-10-29] MEDS ORDERED: ONDANSETRON HCL INJ 2MG/ML 2ML 2 MG/ML VIAL IV PRN (10:00)
[2018-10-29] MEDS ORDERED: DIPHENHYDRAMINE HCL 25 MG CAP PO PRN (10:00)
[2018-10-29] MEDS ORDERED: BELLADONNA/OPIUM 30 MG SUPP RC PRN (10:00)
--- OUTSIDE RECORDS SUMMARY | 2018-10-29 10:14 | XMS REPORT | Continuity of Care Document ---
Author Author [employer] Address Unknown Phone Unavailable Care Team Providers [facility] Specialist Name Role Phone [facility] [email or web address] Information [facility] Unavailable Unavailable Problems No Data Provided for This Section Medications Medication Details Route Status Patient Instructions Ordering Provider Order Date Source Levothyroxine Sodium 50 Mcg Tablet, 50 Mcg Oral Daily Active 10/05/2017 [facility] Meloxicam (Mobic*) 7.5 Mg Tablet, 7.5 Mg Oral Every 12 Hours Active 10/05/2017 [facility] Penicillin V Potassium 500 Mg Tablet, 500 Mg Oral Three Times A Day Active 10/05/2017 [facility] Tamsulosin Hcl (Flomax*) 0.4 Mg Cap, 0.4 Mg Oral Twice A Day Active 10/05/2017 [facility] Amlodipine Besylate (Norvasc) 5 Mg Tab Daily Active [facility] Atorvastatin Calcium 20 Mg Tablet Daily Active [facility] Levofloxacin (Levaquin) 500 Mg Tablet Daily Active [facility] Valsartan (Diovan) 320 Mg Tablet Daily Active [facility] Atorvastatin Calcium 20 Mg Tablet Daily Active [facility] Levofloxacin (Levaquin) 500 Mg Tablet Daily Active [facility] Allergies, Adverse Reactions, Alerts Substance Category Reaction Severity Reaction type Status Date Reported Comments Source No Known Drug Allergies Unknown Allergy to Substance Active 07/07/2018 [facility] Immunizations No Data Provided for This Section Results Order Name Results Value Reference Range Date Interpretation Comments Source Urine color determination YELLOW YELLOW 07/07/2018 [facility] Urine clarity SL CLOUDY CLEAR 07/07/2018 [facility] Specific gravity of Urine by Test strip 1.015 1.010 - 1.025 07/07/2018 [facility] Urine pH measurement by automated test strip 8 5 - 7 07/07/2018 [facility] Urine leukocyte esterase detection by dipstick NEGATIVE NEGATIVE 07/07/2018 [facility] Urine nitrite detection NEGATIVE NEGATIVE 07/07/2018 [facility] Urine protein measurement by test strip (mass/volume) 1+ NEGATIVE 07/07/2018 [facility] Urine glucose detection NEGATIVE NEGATIVE 07/07/2018 [facility] Urine ketones detection by automated test strip NEGATIVE NEGATIVE 07/07/2018 [facility] Urine urobilinogen measurement by test strip (mass/volume) 0.2 0.2 - 1 07/07/2018 [facility] Urine total bilirubin measurement (mass/volume) NEGATIVE NEGATIVE 07/07/2018 [facility] Urine erythrocytes detection NEGATIVE NEGATIVE 07/07/2018 [facility] Automated urine sediment leukocyte count by microscopy (number/high power field) NONE 0 - 5 07/07/2018 [facility] Erythrocytes detection in urine sediment by light microscopy NONE 0 - 5 07/07/2018 [facility] Bacteria detection in urine sediment by light microscopy FEW NONE 07/07/2018 [facility] Epithelial cells detection in urine sediment by light microscopy RARE NONE 07/07/2018 [facility] Triple phosphate crystals detection in urine sediment by light microscopy FEW FEW 07/07/2018 [facility] Blood leukocytes automated count (number/volume) 9.97 4.8 - 10.8 07/07/2018 [facility] Blood erythrocytes automated count (number/volume) 5.19 4.3 - 5.7 07/07/2018 [facility] Blood hemoglobin measurement (moles/volume) 15.7 14.0 - 18.0 07/07/2018 [facility] Automated blood hematocrit (volume fraction) 47.5 38.2 - 49.6 07/07/2018 [facility] Automated erythrocyte mean corpuscular volume 91.5 81 - 99 07/07/2018 [facility] Automated erythrocyte mean corpuscular hemoglobin (mass per erythrocyte) 30.3 28 - 32 07/07/2018 [facility] Automated erythrocyte mean corpuscular hemoglobin concentration measurement (mass/volume) 33.1 31 - 35 07/07/2018 [facility] RDW BldCo-Rto 13.7 11.7 - 14.4 07/07/2018 [facility] Automated blood platelet count (count/volume) 223 140 - 360 07/07/2018 [facility] Automated blood segmented neutrophil count as percentage of total leukocytes 75.8 38.7 - 80.0 07/07/2018 [facility] Automated blood lymphocyte count as percentage ot total leukocytes 15.6 18.0 - 39.1 07/07/2018 [facility] Automated blood monocyte count as percentage of total leukocytes 6.3 4.4 - 11.3 07/07/2018 [facility] Automated blood eosinophil count as percentage of total leukocytes 1.8 0.0 - 6.0 07/07/2018 [facility] Automated blood basophil count as percentage of total leukocytes 0.2 0.0 - 1.0 07/07/2018 [facility] IM GRANULOCYTES % 0.3 0.0 - 1.0 07/07/2018 [facility] Automated blood neutrophil count 7.6 2.1 - 6.9 07/07/2018 [facility] Blood lymphocytes count (number/volume) 1.6 1.0 - 3.2 07/07/2018 [facility] Blood monocytes automated count (number/volume) 0.6 0.2 - 0.8 07/07/2018 [facility] Automated blood eosinophil count 0.2 0.0 - 0.4 07/07/2018 [facility] Automated blood basophil count (count/volume) 0.0 0.0 - 0.1 07/07/2018 [facility] Absolute Immature Granulocyte (auto 0.03 0 - 0.1 07/07/2018 [facility] Serum or plasma sodium measurement (moles/volume) 142 136 - 145 07/07/2018 [facility] Serum or plasma potassium measurement (moles/volume) 3.6 3.5 - 5.1 07/07/2018 [facility] Serum or plasma chloride measurement (moles/volume) 103 98 - 107 07/07/2018 [facility] Serum or plasma carbon dioxide, total measurement (moles/volume) 32 22 - 29 07/07/2018 [facility] Serum or plasma anion gap 10.6 8 - 16 07/07/2018 [facility] Serum or plasma urea nitrogen measurement (mass/volume) 18 7 - 26 07/07/2018 [facility] Serum or plasma creatinine measurement (mass/volume) 0.87 0.72 - 1.25 07/07/2018 [facility] Serum or plasma urea nitrogen/creatinine mass ratio 21 6 - 25 07/07/2018 [facility] Estimated glomerular filtration rate (GFR) determination > 60 60 07/07/2018 [facility] Glucose measurement 108 74 - 118 07/07/2018 [facility] Serum or plasma calcium measurement (mass/volume) 8.2 8.4 - 10.2 07/07/2018 [facility] Serum or plasma total bilirubin measurement (mass/volume) 0.6 0.2 - 1.2 07/07/2018 [facility] Aspartate Amino Transf (AST/SGOT) 22 5 - 34 07/07/2018 [facility] Serum or plasma alanine aminotransferase measurement (enzymatic activity/volume) 29 0 - 55 07/07/2018 [facility] Serum or plasma protein measurement (mass/volume) 6.7 6.5 - 8.1 07/07/2018 [facility] Serum or plasma albumin measurement (mass/volume) 3.6 3.5 - 5.0 07/07/2018 [facility] Plasma globulin measurement (mass/volume) 3.1 2.3 - 3.5 07/07/2018 [facility] Serum or plasma albumin/globulin mass ratio 1.2 0.8 - 2.0 07/07/2018 [facility] Serum or plasma alkaline phosphatase measurement (enzymatic activity/volume) 64 40 - 150 07/07/2018 [facility] Serum or plasma amylase measurement (enzymatic activity/volume) 43 25 - 125 07/07/2018 [facility] Serum or plasma lipase measurement (enzymatic activity/volume) 16 8 - 78 07/07/2018 [facility] Amorphous sediment detection in urine sediment by light microscopy FEW FEW 10/05/2017 [facility] Amorphous sediment detection in urine sediment by light microscopy Amorphous sediment detection in urine sediment by light microscopy FEW FEW 10/05/2017 [facility] Automated blood basophil count (count/volume) Automated blood basophil count (count/volume) 0.1 0.0 - 0.1 10/05/2017 [facility] Automated blood basophil count as percentage of total leukocytes Automated blood basophil count as percentage of total leukocytes 0.5 0.0 - 1.0 10/05/2017 [facility] Automated blood eosinophil count Automated blood eosinophil count 0.2 0.0 - 0.4 10/05/2017 [facility] Automated blood eosinophil count as percentage of total leukocytes Automated blood eosinophil count as percentage of total leukocytes 1.6 0.0 - 6.0 10/05/2017 [facility] Automated blood hematocrit (volume fraction) Automated blood hematocrit (volume fraction) 43.7 38.2 - 49.6 10/05/2017 [facility] Automated blood lymphocyte count as percentage ot total leukocytes Automated blood lymphocyte count as percentage ot total leukocytes 21.2 18.0 - 39.1 10/05/2017 [facility] Automated blood monocyte count as percentage of total leukocytes Automated blood monocyte count as percentage of total leukocytes 5.7 4.4 - 11.3 10/05/2017 [facility] Automated blood neutrophil count Automated blood neutrophil count 9.7 2.1 - 6.9 10/05/2017 [facility] Automated blood platelet count (count/volume) Automated blood platelet count (count/volume) 208 140 - 360 10/05/2017 [facility] Automated blood segmented neutrophil count as percentage of total leukocytes Automated blood segmented neutrophil count as percentage of total leukocytes 70.6 38.7 - 80.0 10/05/2017 [facility] Automated erythrocyte mean corpuscular hemoglobin (mass per erythrocyte) Automated erythrocyte mean corpuscular hemoglobin (mass per erythrocyte) 30.4 28 - 32 10/05/2017 [facility] Automated erythrocyte mean corpuscular hemoglobin concentration measurement (mass/volume) Automated erythrocyte mean corpuscular hemoglobin concentration measurement (mass/volume) 33.9 31 - 35 10/05/2017 [facility] Automated erythrocyte mean corpuscular volume Automated erythrocyte mean corpuscular volume 89.7 81 - 99 10/05/2017 [facility] Automated urine sediment leukocyte count by microscopy (number/high power field) Automated urine sediment leukocyte count by microscopy (number/high power field) <20 0 - 5 10/05/2017 [facility] Bacteria detection in urine sediment by light microscopy Bacteria detection in urine sediment by light microscopy MANY NONE 10/05/2017 [facility] Blood erythrocytes automated count (number/volume) Blood erythrocytes automated count (number/volume) 4.87 4.3 - 5.7 10/05/2017 [facility] Blood hemoglobin measurement (moles/volume) Blood hemoglobin measurement (moles/volume) 14.8 14.0 - 18.0 10/05/2017 [facility] Blood leukocytes automated count (number/volume) Blood leukocytes automated count (number/volume) 13.79 4.8 - 10.8 10/05/2017 [facility] Blood lymphocytes count (number/volume) Blood lymphocytes count (number/volume) 2.9 1.0 - 3.2 10/05/2017 [facility] Blood monocytes automated count (number/volume) Blood monocytes automated count (number/volume) 0.8 0.2 - 0.8 10/05/2017 [facility] Epithelial cells detection in urine sediment by light microscopy Epithelial cells detection in urine sediment by light microscopy MODERATE NONE 10/05/2017 [facility] Erythrocytes detection in urine sediment by light microscopy Erythrocytes detection in urine sediment by light microscopy <10 0 - 5 10/05/2017 [facility] Estimated glomerular filtration rate (GFR) determination Estimated glomerular filtration rate (GFR) determination >60 60 10/05/2017 [facility] Glucose measurement Glucose measurement 142 74 - 118 10/05/2017 [facility] Plasma globulin measurement (mass/volume) Plasma globulin measurement (mass/volume) 3.0 2.3 - 3.5 10/05/2017 [facility] Serum or plasma alanine aminotransferase measurement (enzymatic activity/volume) Serum or plasma alanine aminotransferase measurement (enzymatic activity/volume) 36 0 - 55 10/05/2017 [facility] Serum or plasma albumin measurement (mass/volume) Serum or plasma albumin measurement (mass/volume) 3.8 3.5 - 5.0 10/05/2017 [facility] Serum or plasma albumin/globulin mass ratio Serum or plasma albumin/globulin mass ratio 1.3 0.8 - 2.0 10/05/2017 [facility] Serum or plasma alkaline phosphatase measurement (enzymatic activity/volume) Serum or plasma alkaline phosphatase measurement (enzymatic activity/volume) 87 40 - 150 10/05/2017 [facility] Serum or plasma anion gap Serum or plasma anion gap 10.7 8 - 16 10/05/2017 [facility] Serum or plasma calcium measurement (mass/volume) Serum or plasma calcium measurement (mass/volume) 9.4 8.4 - 10.2 10/05/2017 [facility] Serum or plasma carbon dioxide, total measurement (moles/volume) Serum or plasma carbon dioxide, total measurement (moles/volume) 29 22 - 29 10/05/2017 [facility] Serum or plasma chloride measurement (moles/volume) Serum or plasma chloride measurement (moles/volume) 105 98 - 107 10/05/2017 [facility] Serum or plasma creatinine measurement (mass/volume) Serum or plasma creatinine measurement (mass/volume) 0.74 0.72 - 1.25 10/05/2017 [facility] Serum or plasma potassium measurement (moles/volume) Serum or plasma potassium measurement (moles/volume) 3.7 3.5 - 5.1 10/05/2017 [facility] Serum or plasma protein measurement (mass/volume) Serum or plasma protein measurement (mass/volume) 6.8 6.5 - 8.1 10/05/2017 [facility] Serum or plasma sodium measurement (moles/volume) Serum or plasma sodium measurement (moles/volume) 141 136 - 145 10/05/2017 [facility] Serum or plasma total bilirubin measurement (mass/volume) Serum or plasma total bilirubin measurement (mass/volume) 0.4 0.2 - 1.2 10/05/2017 [facility] Serum or plasma urea nitrogen measurement (mass/volume) Serum or plasma urea nitrogen measurement (mass/volume) 16 7 - 26 10/05/2017 [facility] Serum or plasma urea nitrogen/creatinine mass ratio Serum or plasma urea nitrogen/creatinine mass ratio 22 6 - 25 10/05/2017 [facility] Specific gravity of Urine by Test strip Specific gravity of Urine by Test strip 1.015 1.010 - 1.025 10/05/2017 [facility] Urine clarity Urine clarity SL CLOUDY CLEAR 10/05/2017 [facility] Urine color determination Urine color determination YELLOW YELLOW 10/05/2017 [facility] Urine erythrocytes detection Urine erythrocytes detection 1+ NEGATIVE 10/05/2017 [facility] Urine glucose detection Urine glucose detection NEGATIVE NEGATIVE 10/05/2017 [facility] Urine ketones detection by automated test strip Urine ketones detection by automated test strip NEGATIVE NEGATIVE 10/05/2017 [facility] Urine leukocyte esterase detection by dipstick Urine leukocyte esterase detection by dipstick 1+ NEGATIVE 10/05/2017 [facility] Urine nitrite detection Urine nitrite detection NEGATIVE NEGATIVE 10/05/2017 [facility] Urine pH measurement by automated test strip Urine pH measurement by automated test strip 7 5 - 7 10/05/2017 [facility] Urine protein measurement by test strip (mass/volume) Urine protein measurement by test strip (mass/volume) TRACE NEGATIVE 10/05/2017 [facility] Urine total bilirubin measurement (mass/volume) Urine total bilirubin measurement (mass/volume) NEGATIVE NEGATIVE 10/05/2017 [facility] Urine urobilinogen measurement by test strip (mass/volume) Urine urobilinogen measurement by test strip (mass/volume) 0.2 0.2 - 1 10/05/2017 [facility] Red Cell Distribution Width 13.4 11.7 - 14.4 10/05/2017 [facility] IM GRANULOCYTES % 0.4 0.0 - 1.0 10/05/2017 [facility] Absolute Immature Granulocyte (auto 0.05 0 - 0.1 10/05/2017 [facility] Aspartate Amino Transf (AST/SGOT) 26 5 - 34 10/05/2017 [facility] Bacterial urine culture Urine Culture [facility] Pathology Reports No Data Provided for This [...] DC Date Status Source Departed Emergency Room [id number] EM CABRERA MD 05/04/2017 05/04/2017 [facility] Departed Emergency Room [id number] DEYSI JUSTIN MD 10/05/2017 10/05/2017 [facility] Departed Emergency Room [id number] JAIRO ESPINO MD 07/07/2018 07/07/2018 [facility] Procedures Procedure Code Date Perfomer Comments Source Computed tomography of abdomen and pelvis with contrast [id number] 07/07/2018 DANISH [facility] Dup-scan artl liudmila abdl/pel/scrot&/RPR orgn lmt [id number] 10/05/2017 [facility] Testicular ultrasound [id number] 10/05/2017 [facility] Assessment and Plan No Data Provided for This Section Plan of Care Plan of Care Date Source Discharge Date 07/07/18 10:25pm Disposition HOME, SELF-CARE Condition at Discharge Stable Instructions/Education Provided Abdominal Pain - Adult Diarrhea - Adult Vomiting - Adult Forms Provided Work/School Excuse Prescriptions See Medication Section Referrals ARIEL VARNER MD () Address: [address] [place], [place] [id number] Additional Instructions/Education Follow-up with PCP in 2 days if symptoms have not improved. Return to ER for new or worsening symptoms including but not limited to continued vomiting not improved with medications, dizziness, weakness, abdominal pain or fever not improved with tylenol or motrin. 07/07/2018 [facility] Discharge Date 10/05/17 10:57pm Disposition HOME, SELF-CARE Condition at Discharge Stable Instructions/Education Provided Epididymitis Hematuria - Male Urinary Tract Infection - Men Forms Provided Work/School Excuse Prescriptions See Medication Section Referrals ANDREW ANTONIO MD Address: [address] [place] [id number] Note: KEEP APPOINTMENT DIRECTED Additional Instructions/Education TAKE ANTIBIOTICS DIRECTED. 10/05/2017 [facility] Social History Social History Date Source Smoking Status Start Date Stop Date Never Smoker 07/07/2018 [facility] Family History No Data Provided for This Section Advance Directives Order Name Results Value Date Source Advance Directives Advance Directives Directive Response Recorded Date/Time Does the patient have an advance directive? No 05/20/07 12:10pm If yes, is advance directive on file with [facility]? No 05/21/07 7:31am If not on file with [facility] will patient provide a copy? No 05/04/17 4:57am Do you have a Directive to Physician? No 07/07/18 8:03pm Do you have a Medical Power of [employer] Recovery Supervisor? No 07/07/18 8:03pm Do you have an [...] rights and responsibilities? Yes 07/07/18 8:03pm 07/07/2018 [facility] Advance Directives Advance Directives Directive Response Recorded Date/Time Does the patient have an advance directive? No 05/20/07 12:10pm If yes, is advance directive on file with [facility]? No 05/21/07 7:31am If not on file with [facility] will patient provide a copy? No 05/04/17 4:57am Do you have a Directive to Physician? No 10/05/17 8:22pm Do you have a Medical Power of [employer]omer Recovery Supervisor? No 10/05/17 8:22pm Do you have an [...] rights and responsibilities? Yes 10/05/17 8:22pm 10/05/2017 [facility] Functional Status No Data Provided for This Section
--- NOTE | 2018-10-29 10:50 | NUR ---
Pt arrived to unit via stretcher with assist x2. Duenas catheter in place, clear urine noted, no blood clots observed. CBI being administered at this time. IV to L hand, patent no swelling or redness to insertion site. Pt c/o pain to scrotum 10/29. A&O x3. Resp WNL. NC @ 2LPM. SCD and MARCELO hose in place. Pt is able to ambulate by self. Call light within reach, duenas below bladder, bed locked and in lowest position.
[2018-10-29] MEDS: ACETAMINOPHEN/CODEINE 300MG - 30MG TAB PO PRN (11:20)
[2018-10-29] MEDS: FLUCONAZOLE 200 MG/100 ML 100 ML IV SCH (12:18)
[2018-10-29 12:34] VITALS: BP 135/68
[2018-10-29 12:35] LABS: BASOPHILS % 0.2 % (0.0-1.0); HEMATOCRIT 44.6 % (38.2-49.6); HEMOGLOBIN 14.8 g/dL (14.0-18.0); LYMPHOCYTES # (AUTO) 1.5 (1.0-3.2); LYMPHOCYTES % 8.7 % (18.0-39.1); MEAN CORPUSCULAR HEMOGLOBIN 30.6 pg (28-32); MEAN CORPUSCULAR HGB CONC 33.2 g/dL (31-35); MEAN CORPUSCULAR VOLUME 92.3 fL (81-99); MONOCYTES # (AUTO) 0.1 (0.2-0.8); MONOCYTES % 0.7 % (4.4-11.3); NEUTROPHILS # (AUTO) 15.2 (2.1-6.9); PLATELET COUNT 257 x10e3/uL (140-360); RED BLOOD COUNT 4.83 x10e6/uL (4.3-5.7); RED CELL DISTRIBUTION WIDTH 13.5 % (11.7-14.4)
[2018-10-29 13:25] LABS: ANION GAP 12.9 mmol/L (8-16); BLOOD UREA NITROGEN 14 mg/dL (7-26); BUN/CREATININE RATIO 20 (6-25); CALCIUM 8.4 mg/dL (8.4-10.2); CARBON DIOXIDE 22 mmol/L (22-29); CHLORIDE 106 mmol/L (98-107); CREATININE, SERUM 0.69 mg/dL (0.72-1.25); EST GLOMERULAR FILTRATION RATE > 60 ML/MIN (60-); GLUCOSE 145 mg/dL (74-118); POTASSIUM 3.9 mmol/L (3.5-5.1); SODIUM 137 mmol/L (136-145)
[2018-10-29 13:44] VITALS: BP 135/68
[2018-10-29] MEDS: CEFTRIAXONE SOD 1 GM/NS 50 ML 50 ML IV SCH (13:44)
[2018-10-29] MEDS: PHENAZOPYRIDINE HCL 100 MG TAB PO SCH ×2 (13:44→17:15)
[2018-10-29] MEDS ORDERED: B&O 60MG R/S 60 MG SUPP PR PRN (14:15)
[2018-10-29] MEDS: D5.45%NS/KCL 20MEQ 1,000 ML IV SCH ×3 (14:45→21:51)
[2018-10-29 17:08] VITALS: BP 135/68
[2018-10-29] MEDS: DOCUSATE SODIUM 100 MG CAP PO SCH (17:14)
[2018-10-29 17:26] VITALS: BP 143/73
[2018-10-29] MEDS ORDERED: PROPOFOL IV EMULSION 10 MG/ML 20 ML VIAL ONE (18:10)
[2018-10-29] MEDS ORDERED: SEVOFLURANE INHAL SOLN 250 ML PEN BTL ONE (18:10)
[2018-10-29] MEDS ORDERED: ACETAMINOPHEN 1000 MG/100 ML IV ONE (18:10)
[2018-10-29] MEDS ORDERED: LIDOCAINE HCL 2% LOCAL INJ 5 ML SDV VIAL INJ ONE (18:10)
[2018-10-29] MEDS ORDERED: ONDANSETRON HCL INJ 2MG/ML 2ML 2 MG/ML VIAL ONE (18:10)
[2018-10-29] MEDS ORDERED: FUROSEMIDE INJ 10 MG/ML 4 ML VIAL ONE (18:10)
[2018-10-29] MEDS ORDERED: DEXAMETHASONE SOD PHOS INJ 4 MG/ML VIAL ONE (18:10)
[2018-10-29] MEDS ORDERED: MIDAZOLAM HCL 2 MG/2 ML VIAL ONE (18:36)
--- NOTE | 2018-10-29 18:45 | NUR ---
Received bedside report from day shift RN. The patient is laying on the bed, not in distress. Call light within reach, bed height low, wheels lock and side rails up x2. The patient reported no pain at the moment. Continuous bladder irrigation is noted.
[2018-10-29 19:30] VITALS: BP 154/91
[2018-10-29 20:00] VITALS: BP 154/91
[2018-10-30] VITALS: BP 144/69
[2018-10-30 04:00] VITALS: BP 158/75
[2018-10-30] MEDS: D5.45%NS/KCL 20MEQ 1,000 ML IV SCH (05:36)
[2018-10-30 06:43] LABS: BASOPHILS % 0.1 % (0.0-1.0); HEMATOCRIT 40.5 % (38.2-49.6); HEMOGLOBIN 13.1 g/dL (14.0-18.0); LYMPHOCYTES # (AUTO) 1.8 (1.0-3.2); LYMPHOCYTES % 9.3 % (18.0-39.1); MEAN CORPUSCULAR HEMOGLOBIN 29.6 pg (28-32); MEAN CORPUSCULAR HGB CONC 32.3 g/dL (31-35); MEAN CORPUSCULAR VOLUME 91.4 fL (81-99); MONOCYTES # (AUTO) 0.8 (0.2-0.8); NEUTROPHILS # (AUTO) 16.8 (2.1-6.9); PLATELET COUNT 207 x10e3/uL (140-360); RED BLOOD COUNT 4.43 x10e6/uL (4.3-5.7); RED CELL DISTRIBUTION WIDTH 13.5 % (11.7-14.4)
[2018-10-30 07:00] LABS: BLOOD UREA NITROGEN 11 mg/dL (7-26); BUN/CREATININE RATIO 16 (6-25); CALCIUM 8.6 mg/dL (8.4-10.2); CARBON DIOXIDE 28 mmol/L (22-29); CHLORIDE 107 mmol/L (98-107); CREATININE, SERUM 0.67 mg/dL (0.72-1.25); EST GLOMERULAR FILTRATION RATE > 60 ML/MIN (60-); GLUCOSE 160 mg/dL (74-118); SODIUM 141 mmol/L (136-145)
[2018-10-30] MEDS: ACETAMINOPHEN/CODEINE 300MG - 30MG TAB PO PRN (07:07)
[2018-10-30 07:30] VITALS: BP 125/98
--- NOTE | 2018-10-30 07:30 | NUR ---
REC'D PATIENT AAOX3, ON ROOM AIR, IV TO L HAND INTACT AND PATENT, AND INCENTIVE SPIROMETER AT BEDSIDE. TINEO 24 F INTACT. SIDE RAILS UP X2, BED IN LOWEST POSITION, AND CALL WAGNER WITHIN REACH.
--- NOTE | 2018-10-30 07:37 | NUR ---
DR. ANTONIO ALSO INSTRUCTED TO FOLLOW UP WITH HIM IN 1 MONTH AND TO TAKE AZO 3X/DAY FOR THE BURNING.
--- NOTE | 2018-10-30 07:37 | NUR ---
DR. ANTONIO ROUNDED ON PATIENT AND SENDING PATIENT HOME. TOLD HIM TO LEAVE TINEO IN AND TO TAKE IT OUT SATURDAY AND HE INSTRUCTED HOW.
[2018-10-30 08:18] VITALS: BP 125/98
[2018-10-30] MEDS: DOCUSATE SODIUM 100 MG CAP PO SCH ×2 (08:53→17:23)
[2018-10-30] MEDS: PHENAZOPYRIDINE HCL 100 MG TAB PO SCH ×3 (08:53→17:24)
[2018-10-30] MEDS: FLUCONAZOLE 200 MG/100 ML 100 ML IV SCH (08:53)
[2018-10-30] MEDS ORDERED: DIFLUCAN100 MG PO (09:38)
[2018-10-30] MEDS ORDERED: TYLENOL WITH C1 EACH PO (09:39)
[2018-10-30] MEDS ORDERED: LEVAQUIN500 MG PO (09:40)
[2018-10-30] MEDS: CEFTRIAXONE SOD 1 GM/NS 50 ML 50 ML IV SCH (12:10)
[2018-10-30 12:40] VITALS: BP 148/68
[2018-10-30 17:17] VITALS: BP 163/76
--- NOTE | 2018-10-30 18:23 | NUR ---
IV REMOVED FROM LEFT HAND WITHOUT ANY COMPLICATIONS. TELE BOX REMOVED. EMPTIED TINEO 650 ML. ON ROOM AIR AND NO S/S OF DISTRESS. ASSISTED PATIENT IN GETTING DRESSED AND WHILE HELPING WITH TINEO. DISCHARGE PAPERS AND PRESCRIPTIONS GIVEN AND EXPLAINED TO PATIENT. PATIENT UNDERSTOOD THAT HE NEEDS TO REMOVE TINEO ON 11/03/18 (PER DR. ANTONIO AND HIS INSTRUCTIONS ON HOW TO REMOVE IT), TAKE AZT OTC, AND FOLLOW UP WITH HIM IN [address] ANTONIO'S ORDERS.
--- NOTE | 2018-11-17 03:57 | Discharge Summary ---
DISCHARGE DIAGNOSES: 1. Status post transurethral resection of the prostate. 2. Hypertension, controlled. HOSPITAL COURSE: Mr. Lee is a pleasant 72-year-old gentleman, a patient of Dr. Mckeon, who was admitted for TURP. He has history of hypertension, chronic kidney disease, and osteoarthritis. He underwent the procedure by Dr. Hernandez and had no significant complications except for some degree of hematuria, for this reason it was chosen to keep him overnight and observe until he was safe for discharge. The patient was cleared for discharge by Dr. Hernandez and he went home in stable conditions without any additional recommendations. He is to follow up with Dr. Hernandez and his primary care physician. MD DAYLIN Pop/MODL /[id number]
--- NOTE | 2018-12-06 05:37 | Operative Report ---
DATE OF PROCEDURE: 10/29/2018 SURGEON: Jacoby Hernandez MD PREOPERATIVE DIAGNOSES: 1. Obstructive benign prostatic hypertrophy. 2. Incomplete bladder emptying. POSTOPERATIVE DIAGNOSES: 1. Obstructive benign prostatic hypertrophy. 2. Incomplete bladder emptying. 3. Bulbar urethral stricture. OPERATION PERFORMED: 1. Cystourethroscopy with calibration and dilation of urethral stricture (separate procedure performed for the diagnosis of stricture). 2. Cystourethroscopy with bilateral ureteral catheterization and retrograde ureteropyelography (separate procedure performed to evaluate the upper tracts in light of the previous incomplete bladder emptying). 3. Interpretation of retrograde ureteropyelography. 4. Cystourethroscopy with transurethral resection of the prostate utilizing the plasma button electrode. ANESTHESIA: General. COMPLICATIONS: None. CLINICAL SUMMARY: Sal Lee is a 72-year-old man with obstructive BPH with symptomatology. The patient is status post previous laser prostatectomy with a GreenLight laser. He was brought for the above procedures. He is aware of the risks of bleeding, infection, injury to adjacent structures, incontinence, impotence, need for additional procedures, retrograde ejaculation, and elected to proceed. OPERATIVE PROCEDURE IN DETAIL: Informed consent was verified. Sal Lee was properly identified, taken to the operating room, placed on the cystoscopy table in supine position. Anesthesia was uneventfully begun. The patient was then carefully and gently repositioned in the dorsal lithotomy position with all pressure points well padded. His genitalia were prepared and draped in usual sterile fashion. The cystoscope sheath with the visual obturator in place was atraumatically inserted into the patient's urethra. It was guided down the normal distal urethra to the bulbar region, where we encountered urethral stricture. This stricture was gently dilated to the cystoscope sheath size. We then went through the normal sphincteric region, went into the prostate bed, which was significant for visually obstructing tissue at the level of the verumontanum. This was anterior tissue that was collapsing into the prostatic bed causing visual obstruction. The proximal prostate bed exhibited some scarring. We entered the patient's bladder. Panendoscopy revealed trabeculations with no tumors, no stones, no diverticula. Normally positioned configured ureteral orifices were identified. An 8-Georgian catheter was used to cannulate each ureter and retrograde ureteropyelography was performed. Interpretation of retrograde ureteropyelography contrast was instilled in retrograde fashion bilaterally. There were no tumors, no stones, and no diverticula. Unobstructed drainage was observed bilaterally fluoroscopically. We then utilized Twyla sounds to progressively dilate the patient's bulbar urethra to 30-Georgian in size. We then easily placed the resectoscope sheath with obturator in place. Transurethral resection with the plasma button electrode was carried out from the bladder neck to maneuver past the verumontanum. There was severe scarring of the prostatic bed as a result of the previous PVP. The anterior prostatic tissue that was obstructing was also vaporized down the surgical capsule. Pinpoint electrocautery was utilized to achieve hemostasis at no point in time that we ever passed distal to the verumontanum. A wide open prostatic bed was accomplished. Care was taken to avoid injuring the ureteral orifices during the resection. The resectoscope was withdrawn. Murray catheter was placed. It was placed on continuous irrigation. It was irrigated to and fro to ensure it worked properly. A belladonna and opium suppository were placed revealing 40 g prostate, that is smooth and nonfluctuant without any nodules. The patient was uneventfully reversed from anesthesia and taken to recovery in stable condition. There were no complications to the procedure. He tolerated the procedure well. We will proceed with routine postoperative care and of course ongoing urological followup. Jacoby Hernandez MD [facility] /[id number] cc: Anais Mckeon MD
== END 2018-10-30 18:29 | disposition home or self-care (01) | DRG 713 ==
LOC: OR 05:00 → PACU V 10:04 → MED/SURG 11:01
PROVIDERS: ADMIT Internal Medicine; ATTEND Internal Medicine
PROC: BT141ZZ Fluoroscopy of Kidneys, Ureters and Bladder using Low Osmolar Contrast (ICD-10-PCS; 2018-10-29)
PROC: 0T7D8ZZ Dilation of Urethra, Via Natural or Artificial Opening Endoscopic (ICD-10-PCS; 2018-10-29)
PROC: 0T788ZZ Dilation of Bilateral Ureters, Via Natural or Artificial Opening Endoscopic (ICD-10-PCS; principal; 2018-10-29 07:00)
PROC: 0VB08ZZ Excision of Prostate, Via Natural or Artificial Opening Endoscopic (ICD-10-PCS; 2018-10-29 07:00)
DX: N40.1 Benign prostatic hyperplasia with lower urinary tract symptoms (principal); N13.8 Other obstructive and reflux uropathy; R39.14 Feeling of incomplete bladder emptying; I10 Essential (primary) hypertension; E78.5 Hyperlipidemia, unspecified; N35.912 Unspecified bulbous urethral stricture, male
CPT/HCPCS: 36415; 71046; 74420; 80048; 83735; 85025; 93005; J0696; J1100; J1450; J1580; J1940; J2001; J2250; J2405; J3010

== ENCOUNTER 2018-11-04 09:32 | Emergency (ER) | payer MEDICARE ==
[~2018-11-04] VITALS: Ht 190.5 cm; Wt 111.1 kg
[~2018-11-04 09:32] MED LIST changes: +DIFLUCAN100 MG PO; +TYLENOL WITH C1 EACH PO
--- OUTSIDE RECORDS SUMMARY | 2018-11-04 09:50 | XMS REPORT | Continuity of Care Document ---
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 Role Phone [facility] [employer] Unavailable Unavailable Problems No Data Provided for This Section Medications Medication Details Route Status Patient Instructions Ordering Provider Order Date Source Levothyroxine Sodium 50 Mcg Tablet, 50 Mcg Oral Daily Active 10/05/2017 [facility] Meloxicam (Mobic*) 7.5 Mg Tablet, 7.5 Mg Oral Every 12 Hours Active 10/05/2017 [facility] Penicillin V Potassium 500 Mg Tablet, 500 Mg Oral Three Times A Day Active 10/05/2017 [facility] Tamsulosin Hcl (Flomax*) 0.4 Mg Cap, 0.4 Mg Oral Twice A Day Active 10/05/2017 [facility] Amlodipine Besylate (Norvasc) 5 Mg Tab Daily Active [facility] Atorvastatin Calcium 20 Mg Tablet Daily Active [facility] Levofloxacin (Levaquin) 500 Mg Tablet Daily Active [facility] Valsartan (Diovan) 320 Mg Tablet Daily Active [facility] Atorvastatin Calcium 20 Mg Tablet Daily Active [facility] Levofloxacin (Levaquin) 500 Mg Tablet Daily Active [facility] Allergies, Adverse Reactions, Alerts Substance Category Reaction Severity Reaction type Status Date Reported Comments Source No Known Drug Allergies Unknown Allergy to Substance Active 07/07/2018 [facility] Immunizations No Data Provided for This Section Results Order Name Results Value Reference Range Date Interpretation Comments Source Urine color determination YELLOW YELLOW 07/07/2018 [facility] Urine clarity SL CLOUDY CLEAR 07/07/2018 [facility] Specific gravity of Urine by Test strip 1.015 1.010 - 1.025 07/07/2018 [facility] Urine pH measurement by automated test strip 8 5 - 7 07/07/2018 [facility] Urine leukocyte esterase detection by dipstick NEGATIVE NEGATIVE 07/07/2018 [facility] Urine nitrite detection NEGATIVE NEGATIVE 07/07/2018 [facility] Urine protein measurement by test strip (mass/volume) 1+ NEGATIVE 07/07/2018 [facility] Urine glucose detection NEGATIVE NEGATIVE 07/07/2018 [facility] Urine ketones detection by automated test strip NEGATIVE NEGATIVE 07/07/2018 [facility] Urine urobilinogen measurement by test strip (mass/volume) 0.2 0.2 - 1 07/07/2018 [facility] Urine total bilirubin measurement (mass/volume) NEGATIVE NEGATIVE 07/07/2018 [facility] Urine erythrocytes detection NEGATIVE NEGATIVE 07/07/2018 [facility] Automated urine sediment leukocyte count by microscopy (number/high power field) NONE 0 - 5 07/07/2018 [facility] Erythrocytes detection in urine sediment by light microscopy NONE 0 - 5 07/07/2018 [facility] Bacteria detection in urine sediment by light microscopy FEW NONE 07/07/2018 [facility] Epithelial cells detection in urine sediment by light microscopy RARE NONE 07/07/2018 [facility] Triple phosphate crystals detection in urine sediment by light microscopy FEW FEW 07/07/2018 [facility] Blood leukocytes automated count (number/volume) 9.97 4.8 - 10.8 07/07/2018 [facility] Blood erythrocytes automated count (number/volume) 5.19 4.3 - 5.7 07/07/2018 [facility] Blood hemoglobin measurement (moles/volume) 15.7 14.0 - 18.0 07/07/2018 [facility] Automated blood hematocrit (volume fraction) 47.5 38.2 - 49.6 07/07/2018 [facility] Automated erythrocyte mean corpuscular volume 91.5 81 - 99 07/07/2018 [facility] Automated erythrocyte mean corpuscular hemoglobin (mass per erythrocyte) 30.3 28 - 32 07/07/2018 [facility] Automated erythrocyte mean corpuscular hemoglobin concentration measurement (mass/volume) 33.1 31 - 35 07/07/2018 [facility] RDW BldCo-Rto 13.7 11.7 - 14.4 07/07/2018 [facility] Automated blood platelet count (count/volume) 223 140 - 360 07/07/2018 [facility] Automated blood segmented neutrophil count as percentage of total leukocytes 75.8 38.7 - 80.0 07/07/2018 [facility] Automated blood lymphocyte count as percentage ot total leukocytes 15.6 18.0 - 39.1 07/07/2018 [facility] Automated blood monocyte count as percentage of total leukocytes 6.3 4.4 - 11.3 07/07/2018 [facility] Automated blood eosinophil count as percentage of total leukocytes 1.8 0.0 - 6.0 07/07/2018 [facility] Automated blood basophil count as percentage of total leukocytes 0.2 0.0 - 1.0 07/07/2018 [facility] IM GRANULOCYTES % 0.3 0.0 - 1.0 07/07/2018 [facility] Automated blood neutrophil count 7.6 2.1 - 6.9 07/07/2018 [facility] Blood lymphocytes count (number/volume) 1.6 1.0 - 3.2 07/07/2018 [facility] Blood monocytes automated count (number/volume) 0.6 0.2 - 0.8 07/07/2018 [facility] Automated blood eosinophil count 0.2 0.0 - 0.4 07/07/2018 [facility] Automated blood basophil count (count/volume) 0.0 0.0 - 0.1 07/07/2018 [facility] Absolute Immature Granulocyte (auto 0.03 0 - 0.1 07/07/2018 [facility] Serum or plasma sodium measurement (moles/volume) 142 136 - 145 07/07/2018 [facility] Serum or plasma potassium measurement (moles/volume) 3.6 3.5 - 5.1 07/07/2018 [facility] Serum or plasma chloride measurement (moles/volume) 103 98 - 107 07/07/2018 [facility] Serum or plasma carbon dioxide, total measurement (moles/volume) 32 22 - 29 07/07/2018 [facility] Serum or plasma anion gap 10.6 8 - 16 07/07/2018 [facility] Serum or plasma urea nitrogen measurement (mass/volume) 18 7 - 26 07/07/2018 [facility] Serum or plasma creatinine measurement (mass/volume) 0.87 0.72 - 1.25 07/07/2018 [facility] Serum or plasma urea nitrogen/creatinine mass ratio 21 6 - 25 07/07/2018 [facility] Estimated glomerular filtration rate (GFR) determination > 60 60 07/07/2018 [facility] Glucose measurement 108 74 - 118 07/07/2018 [facility] Serum or plasma calcium measurement (mass/volume) 8.2 8.4 - 10.2 07/07/2018 [facility] Serum or plasma total bilirubin measurement (mass/volume) 0.6 0.2 - 1.2 07/07/2018 [facility] Aspartate Amino Transf (AST/SGOT) 22 5 - 34 07/07/2018 [facility] Serum or plasma alanine aminotransferase measurement (enzymatic activity/volume) 29 0 - 55 07/07/2018 [facility] Serum or plasma protein measurement (mass/volume) 6.7 6.5 - 8.1 07/07/2018 [facility] Serum or plasma albumin measurement (mass/volume) 3.6 3.5 - 5.0 07/07/2018 [facility] Plasma globulin measurement (mass/volume) 3.1 2.3 - 3.5 07/07/2018 [facility] Serum or plasma albumin/globulin mass ratio 1.2 0.8 - 2.0 07/07/2018 [facility] Serum or plasma alkaline phosphatase measurement (enzymatic activity/volume) 64 40 - 150 07/07/2018 [facility] Serum or plasma amylase measurement (enzymatic activity/volume) 43 25 - 125 07/07/2018 [facility] Serum or plasma lipase measurement (enzymatic activity/volume) 16 8 - 78 07/07/2018 [facility] Amorphous sediment detection in urine sediment by light microscopy FEW FEW 10/05/2017 [facility] Amorphous sediment detection in urine sediment by light microscopy Amorphous sediment detection in urine sediment by light microscopy FEW FEW 10/05/2017 [facility] Automated blood basophil count (count/volume) Automated blood basophil count (count/volume) 0.1 0.0 - 0.1 10/05/2017 [facility] Automated blood basophil count as percentage of total leukocytes Automated blood basophil count as percentage of total leukocytes 0.5 0.0 - 1.0 10/05/2017 [facility] Automated blood eosinophil count Automated blood eosinophil count 0.2 0.0 - 0.4 10/05/2017 [facility] Automated blood eosinophil count as percentage of total leukocytes Automated blood eosinophil count as percentage of total leukocytes 1.6 0.0 - 6.0 10/05/2017 [facility] Automated blood hematocrit (volume fraction) Automated blood hematocrit (volume fraction) 43.7 38.2 - 49.6 10/05/2017 [facility] Automated blood lymphocyte count as percentage ot total leukocytes Automated blood lymphocyte count as percentage ot total leukocytes 21.2 18.0 - 39.1 10/05/2017 [facility] Automated blood monocyte count as percentage of total leukocytes Automated blood monocyte count as percentage of total leukocytes 5.7 4.4 - 11.3 10/05/2017 [facility] Automated blood neutrophil count Automated blood neutrophil count 9.7 2.1 - 6.9 10/05/2017 [facility] Automated blood platelet count (count/volume) Automated blood platelet count (count/volume) 208 140 - 360 10/05/2017 [facility] Automated blood segmented neutrophil count as percentage of total leukocytes Automated blood segmented neutrophil count as percentage of total leukocytes 70.6 38.7 - 80.0 10/05/2017 [facility] Automated erythrocyte mean corpuscular hemoglobin (mass per erythrocyte) Automated erythrocyte mean corpuscular hemoglobin (mass per erythrocyte) 30.4 28 - 32 10/05/2017 [facility] Automated erythrocyte mean corpuscular hemoglobin concentration measurement (mass/volume) Automated erythrocyte mean corpuscular hemoglobin concentration measurement (mass/volume) 33.9 31 - 35 10/05/2017 [facility] Automated erythrocyte mean corpuscular volume Automated erythrocyte mean corpuscular volume 89.7 81 - 99 10/05/2017 [facility] Automated urine sediment leukocyte count by microscopy (number/high power field) Automated urine sediment leukocyte count by microscopy (number/high power field) <20 0 - 5 10/05/2017 [facility] Bacteria detection in urine sediment by light microscopy Bacteria detection in urine sediment by light microscopy MANY NONE 10/05/2017 [facility] Blood erythrocytes automated count (number/volume) Blood erythrocytes automated count (number/volume) 4.87 4.3 - 5.7 10/05/2017 [facility] Blood hemoglobin measurement (moles/volume) Blood hemoglobin measurement (moles/volume) 14.8 14.0 - 18.0 10/05/2017 [facility] Blood leukocytes automated count (number/volume) Blood leukocytes automated count (number/volume) 13.79 4.8 - 10.8 10/05/2017 [facility] Blood lymphocytes count (number/volume) Blood lymphocytes count (number/volume) 2.9 1.0 - 3.2 10/05/2017 [facility] Blood monocytes automated count (number/volume) Blood monocytes automated count (number/volume) 0.8 0.2 - 0.8 10/05/2017 [facility] Epithelial cells detection in urine sediment by light microscopy Epithelial cells detection in urine sediment by light microscopy MODERATE NONE 10/05/2017 [facility] Erythrocytes detection in urine sediment by light microscopy Erythrocytes detection in urine sediment by light microscopy <10 0 - 5 10/05/2017 [facility] Estimated glomerular filtration rate (GFR) determination Estimated glomerular filtration rate (GFR) determination >60 60 10/05/2017 [facility] Glucose measurement Glucose measurement 142 74 - 118 10/05/2017 [facility] Plasma globulin measurement (mass/volume) Plasma globulin measurement (mass/volume) 3.0 2.3 - 3.5 10/05/2017 [facility] Serum or plasma alanine aminotransferase measurement (enzymatic activity/volume) Serum or plasma alanine aminotransferase measurement (enzymatic activity/volume) 36 0 - 55 10/05/2017 [facility] Serum or plasma albumin measurement (mass/volume) Serum or plasma albumin measurement (mass/volume) 3.8 3.5 - 5.0 10/05/2017 [facility] Serum or plasma albumin/globulin mass ratio Serum or plasma albumin/globulin mass ratio 1.3 0.8 - 2.0 10/05/2017 [facility] Serum or plasma alkaline phosphatase measurement (enzymatic activity/volume) Serum or plasma alkaline phosphatase measurement (enzymatic activity/volume) 87 40 - 150 10/05/2017 [facility] Serum or plasma anion gap Serum or plasma anion gap 10.7 8 - 16 10/05/2017 [facility] Serum or plasma calcium measurement (mass/volume) Serum or plasma calcium measurement (mass/volume) 9.4 8.4 - 10.2 10/05/2017 [facility] Serum or plasma carbon dioxide, total measurement (moles/volume) Serum or plasma carbon dioxide, total measurement (moles/volume) 29 22 - 29 10/05/2017 [facility] Serum or plasma chloride measurement (moles/volume) Serum or plasma chloride measurement (moles/volume) 105 98 - 107 10/05/2017 [facility] Serum or plasma creatinine measurement (mass/volume) Serum or plasma creatinine measurement (mass/volume) 0.74 0.72 - 1.25 10/05/2017 [facility] Serum or plasma potassium measurement (moles/volume) Serum or plasma potassium measurement (moles/volume) 3.7 3.5 - 5.1 10/05/2017 [facility] Serum or plasma protein measurement (mass/volume) Serum or plasma protein measurement (mass/volume) 6.8 6.5 - 8.1 10/05/2017 [facility] Serum or plasma sodium measurement (moles/volume) Serum or plasma sodium measurement (moles/volume) 141 136 - 145 10/05/2017 [facility] Serum or plasma total bilirubin measurement (mass/volume) Serum or plasma total bilirubin measurement (mass/volume) 0.4 0.2 - 1.2 10/05/2017 [facility] Serum or plasma urea nitrogen measurement (mass/volume) Serum or plasma urea nitrogen measurement (mass/volume) 16 7 - 26 10/05/2017 [facility] Serum or plasma urea nitrogen/creatinine mass ratio Serum or plasma urea nitrogen/creatinine mass ratio 22 6 - 25 10/05/2017 [facility] Specific gravity of Urine by Test strip Specific gravity of Urine by Test strip 1.015 1.010 - 1.025 10/05/2017 [facility] Urine clarity Urine clarity SL CLOUDY CLEAR 10/05/2017 [facility] Urine color determination Urine color determination YELLOW YELLOW 10/05/2017 [facility] Urine erythrocytes detection Urine erythrocytes detection 1+ NEGATIVE 10/05/2017 [facility] Urine glucose detection Urine glucose detection NEGATIVE NEGATIVE 10/05/2017 [facility] Urine ketones detection by automated test strip Urine ketones detection by automated test strip NEGATIVE NEGATIVE 10/05/2017 [facility] Urine leukocyte esterase detection by dipstick Urine leukocyte esterase detection by dipstick 1+ NEGATIVE 10/05/2017 [facility] Urine nitrite detection Urine nitrite detection NEGATIVE NEGATIVE 10/05/2017 [facility] Urine pH measurement by automated test strip Urine pH measurement by automated test strip 7 5 - 7 10/05/2017 [facility] Urine protein measurement by test strip (mass/volume) Urine protein measurement by test strip (mass/volume) TRACE NEGATIVE 10/05/2017 [facility] Urine total bilirubin measurement (mass/volume) Urine total bilirubin measurement (mass/volume) NEGATIVE NEGATIVE 10/05/2017 [facility] Urine urobilinogen measurement by test strip (mass/volume) Urine urobilinogen measurement by test strip (mass/volume) 0.2 0.2 - 1 10/05/2017 [facility] Red Cell Distribution Width 13.4 11.7 - 14.4 10/05/2017 [facility] IM GRANULOCYTES % 0.4 0.0 - 1.0 10/05/2017 [facility] Absolute Immature Granulocyte (auto 0.05 0 - 0.1 10/05/2017 [facility] Aspartate Amino Transf (AST/SGOT) 26 5 - 34 10/05/2017 [facility] Bacterial urine culture Urine Culture [facility] Pathology Reports No Data Provided [...] DC Date Status Source Departed Emergency Room [id number] EM CABRERA MD 05/04/2017 05/04/2017 [facility] Departed Emergency Room [id number] DEYSI JUSTIN MD 10/05/2017 10/05/2017 [facility] Departed Emergency Room [id number] JAIRO ESPINO MD 07/07/2018 07/07/2018 [facility] Procedures Procedure Code Date Perfomer Comments Source Computed tomography of abdomen and pelvis with contrast [id number] 07/07/2018 [facility] Dup-scan artl liudmila abdl/pel/scrot&/[place] [id number] 10/05/2017 [facility] Testicular ultrasound [id number] 10/05/2017 [facility] Assessment and Plan No Data Provided for This Section Plan of Care Plan of Care Date Source Discharge Date 07/07/18 10:25pm Disposition HOME, SELF-CARE Condition at Discharge Stable Instructions/Education Provided Abdominal Pain - Adult Diarrhea - Adult Vomiting - Adult Forms Provided Work/School Excuse Prescriptions See Medication Section Referrals ARIEL VARNER MD () Address: [address] [place], [place] [id number] Additional Instructions/Education Follow-up with PCP in 2 days if symptoms have not improved. Return to ER for new or worsening symptoms including but not limited to continued vomiting not improved with medications, dizziness, weakness, abdominal pain or fever not improved with tylenol or motrin. 07/07/2018 [facility] Discharge Date 10/05/17 10:57pm Disposition HOME, SELF-CARE Condition at Discharge Stable Instructions/Education Provided Epididymitis Hematuria - Male Urinary Tract Infection - Men Forms Provided Work/School Excuse Prescriptions See Medication Section Referrals ANDREW ANTONIO MD Address: [address] [place] [id number] Note: KEEP APPOINTMENT DIRECTED Additional Instructions/Education TAKE ANTIBIOTICS DIRECTED. 10/05/2017 [facility] Social History Social History Date Source Smoking Status Start Date Stop Date Never Smoker 07/07/2018 [facility] Family History No Data Provided for This Section Advance Directives Order Name Results Value Date Source Advance Directives Advance Directives Directive Response Recorded Date/Time Does the patient have an advance directive? No 05/20/07 12:10pm If yes, is advance directive on file with [facility]? No 05/21/07 7:31am If not on file with [facility] will patient provide a copy? No 05/04/17 4:57am Do you have a Directive to Physician? No 07/07/18 8:03pm Do you have a Medical Power of Driver Salesman? No 07/07/18 8:03pm Do you have an [...] rights and responsibilities? Yes 07/07/18 8:03pm 07/07/2018 [facility] Advance Directives Advance Directives Directive Response Recorded Date/Time Does the patient have an advance directive? No 05/20/07 12:10pm If yes, is advance directive on file with [facility]? No 05/21/07 7:31am If not on file with [facility] will patient provide a copy? No 05/04/17 4:57am Do you have a Directive to Physician? No 10/05/17 8:22pm Do you have a Medical Power of Driver Salesman? No 10/05/17 8:22pm Do you have an [...] rights and responsibilities? Yes 10/05/17 8:22pm 10/05/2017 [facility] Functional Status No Data Provided for This Section
[2018-11-04] MEDS ORDERED: SODIUM CHLORIDE 0.9% 1000ML 1,000 ML IV STA (10:32)
[2018-11-04] MEDS ORDERED: CEFTRIAXONE SOD 1 GM VIAL IV ONE (10:45)
[2018-11-04] MEDS ORDERED: ACETAMINOPHEN 325 MG TAB PO PRN (10:45)
[2018-11-04] MEDS ORDERED: ENALAPRILAT IV INJ 1.25 MG/ML VIAL IV PRN (10:45)
[2018-11-04] MEDS ORDERED: MORPHINE SULFATE INJ 4 MG/ML INJ 1ML IV PRN (10:45)
[2018-11-04] MEDS ORDERED: DIPHENHYDRAMINE HCL INJ 50 MG/ML VIAL IV PRN (10:45)
[2018-11-04] MEDS ORDERED: ONDANSETRON HCL 4 MG ORAL DISINTEGRATING TAB PO PRN (10:45)
[2018-11-04] MEDS ORDERED: FAMOTIDINE 20 MG/2 ML VIAL IV NR (11:15)
[2018-11-04] MEDS ORDERED: CEFTRIAXONE SOD 1 GM/NS 50 ML 50 ML IV ONE (11:15)
[2018-11-04 11:24] LABS: BILIRUBIN,URINE MODERATE (NEGATIVE); CLARITY,URINE CLOUDY (CLEAR); COLOR,URINE BROWN (YELLOW); KETONES,URINE NEGATIVE (NEGATIVE); LEUKOCYTE ESTERASE ,URINE TRACE (NEGATIVE); NITRITE,URINE POSITIVE (NEGATIVE); URINE UROBILINOGEN 1 mg/dL (0.2 - 1)
[2018-11-04 11:26] LABS: BASOPHILS % 0.4 % (0.0-1.0); EOSINOPHILS # (AUTO) 0.2 (0.0-0.4); HEMATOCRIT 43.2 % (38.2-49.6); HEMOGLOBIN 14.1 g/dL (14.0-18.0); LYMPHOCYTES # (AUTO) 2.3 (1.0-3.2); LYMPHOCYTES % 21.2 % (18.0-39.1); MEAN CORPUSCULAR HEMOGLOBIN 29.6 pg (28-32); MEAN CORPUSCULAR HGB CONC 32.6 g/dL (31-35); MEAN CORPUSCULAR VOLUME 90.8 fL (81-99); MONOCYTES # (AUTO) 0.7 (0.2-0.8); MONOCYTES % 6.9 % (4.4-11.3); NEUTROPHILS # (AUTO) 7.4 (2.1-6.9); NEUTROPHILS % 68.7 % (38.7-80.0); PLATELET COUNT 253 x10e3/uL (140-360); RED BLOOD COUNT 4.76 x10e6/uL (4.3-5.7); RED CELL DISTRIBUTION WIDTH 13.5 % (11.7-14.4)
[2018-11-04 11:39] LABS: PROTEIN,URINE DIPSTICK 3+ (NEGATIVE)
[2018-11-04 11:40] LABS: BACTERIA,URINE MODERATE /HPF; EPITHELIAL CELLS,URINE MODERATE /LPF; RBC,URINE >50 /HPF (0-5)
[2018-11-04 11:42] LABS: ALANINE AMINOTRANSFERASE 28 IU/L (0-55); ALBUMIN 3.7 g/dL (3.5-5.0); ALBUMIN/GLOBULIN RATIO 1.1 (0.8-2.0); ALKALINE PHOSPHATASE 89 IU/L (40-150); ANION GAP 11.9 mmol/L (8-16); BLOOD UREA NITROGEN 22 mg/dL (7-26); BUN/CREATININE RATIO 26 (6-25); CALCIUM 9.5 mg/dL (8.4-10.2); CARBON DIOXIDE 28 mmol/L (22-29); CHLORIDE 104 mmol/L (98-107); CREATININE, SERUM 0.84 mg/dL (0.72-1.25); EST GLOMERULAR FILTRATION RATE > 60 ML/MIN (60-); GLUCOSE 100 mg/dL (74-118); POTASSIUM 3.9 mmol/L (3.5-5.1); SODIUM 140 mmol/L (136-145)
[2018-11-04 12:16] VITALS: BP 135/97
[2018-11-04] MEDS ORDERED: FAMOTIDINE 20 MG/2 ML VIAL IV SCH (17:00)
== END 2018-11-04 12:25 | disposition home or self-care (01) ==
LOC: ER 09:32
DX: N30.01 Acute cystitis with hematuria (principal); R33.9 Retention of urine, unspecified; I10 Essential (primary) hypertension; E78.5 Hyperlipidemia, unspecified; Z87.891 Personal history of nicotine dependence
CPT/HCPCS: 36415; 80053; 81001; 85025; 87086; 99283; J0696; J7030

== ENCOUNTER 2020-02-24 17:14 | Emergency (ER) | payer MEDICARE ==
[~2020-02-24] VITALS: Ht 190.5 cm; Wt 111.1 kg
[2020-02-24] MEDS ORDERED: IBUPROFEN 600 MG TAB PO STA (17:41)
[2020-02-24] MEDS ORDERED: HYDROCODONE/APAP 5MG-325MG TAB PO ONE (17:45)
--- NOTE | 2020-02-24 18:32 | Emergency Department Note ---
History of Present Illnes History of Present Illness Chief Complaint: Skin Rash or Abscess History of Present Illness This is a 74 year old male Chief Complaint Comment Patient in from home with complaints of left hand pain and swelling secondary to a dog bite that happened last night. Patient reports that it was his dog that bit him. All of the dog's shots are up to date. Patient with puncture wounds to the back of his left hand and his left thumb. Localized redness and swelling noted. No bruising or abnormal discharge noted from the wound. Patient rates pain 10. 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 Any updates have been documented here. Past Medical History Recent Fever: No Clinical Suspicion of Infectio: No New/Unexplained Change in Ment: No Past Medical History: Hypertension, Hyperlipedemia Other Medical History: BROKEN R WRIST HIP JOINT REPLACEMENT Past Surgical History: Appendectomy, Hip Replacement Other Surgery: TURP 4/5 YEARS AGO Social History Smoking Cessation: Never Smoker Alcohol Use: Occasional Any Illegal Drug Use: No Other Last Tetanus: OOD Any Pre-Existing Lines (PICC,: No Review of Systems Review of Systems Constitutional: Reports no symptoms EENTM: Reports no symptoms Cardiovascular: Reports no symptoms Respiratory: Reports no symptoms Gastrointestinal: Reports no symptoms Genitourinary: Reports no symptoms Musculoskeletal: Reports as per HPI (L hand pain/dog bite) Integumentary: Reports no symptoms Neurological: Reports no symptoms Psychological: Reports no symptoms Endocrine: Reports no symptoms Hematological/Lymphatic: Reports no symptoms Physical Exam Related Data Allergies: Coded Allergies: No Known Drug Allergies (Verified Allergy, Unknown, 07/07/18) Triage Vital Signs Vital Signs Date Time Temp Pulse Resp B/P (MAP) Pulse Ox O2 Delivery O2 Flow Rate FiO2 02/24/20 17:34 97.9 87 16 173/76 98 Room Air Vital signs reviewed: Yes Physical Exam CONSTITUTIONAL Constitutional: Present well-developed, Present well-nourished HENT HENT: Present normocephalic, Present atraumatic, Present oropharynx clear/moist, Present nose normal HENT L/R: Present left ext ear normal, Present right ext ear normal EYES Eyes: Reports PERRL, Reports conjunctivae normal NECK Neck: Present ROM normal PULMONARY Pulmonary: Present effort normal, Present breath sounds normal CARDIOVASCULAR Cardiovascular: Present regular rhythm, Present heart sounds normal, Present capillary refill normal, Present normal rate GASTROINTESTINAL Abdominal: Present soft, Present nontender, Present bowel sounds normal GENITOURINARY Genitourinary: Present exam deferred SKIN Skin: Present warm, Present dry MUSCULOSKELETAL Musculoskeletal: Present ROM normal, Present other (Small puncture wound to L hand. No sig erythema or warmth) NEUROLOGICAL Neurological: Present alert, Present oriented x 3, Present no gross motor or sensory deficits PSYCHOLOGICAL Psychological: Present mood/affect normal, Present judgement normal Results Imaging Imaging results reviewed: Yes Assessment & Plan Medical Decision Making [facility] 50 y.o M presents for dog bit to L hand yesterday. Dog is UTD on vaccinations. Tetanus updated. Hand exam normal. Will Rx Augmentin and return precautions given. Appropriate for DC. Will not require repair. Reassessment Reassessment time: 19:06 Reassessment Well appearing, NAD Assessment & Plan Final Impression: (1) Dog bite Depart Disposition: HOME, SELF-CARE Last Vital Signs Date Time Temp Pulse Resp B/P (MAP) Pulse Ox O2 Delivery O2 Flow Rate FiO2 02/24/20 17:34 97.9 87 16 173/76 98 Room Air Home Meds Reported Medications Levofloxacin (LEVAQUIN) 500 Mg Tablet, 250 MG PO DAILY, #7 TAB 10/30/18 Acetaminophen With Codeine (TYLENOL WITH CODEINE #3 TABLET) 1 Each Tablet, 300 MG PO Q6H PRN for Mild Pain (1-3) or Fever>100.8, #30 TAB 10/30/18 Fluconazole (DIFLUCAN) 100 Mg Tablet, 100 MG PO DAILY, #10 10/30/18 Losartan Potassium (LOSARTAN POTASSIUM) 100 Mg Tablet, 100 MG PO DAILY, TAB 10/27/18 Atorvastatin Calcium (ATORVASTATIN CALCIUM) 20 Mg Tablet, 20 MG PO DAILY, #30 TAB 10/05/17 Amlodipine Besylate (NORVASC) 5 Mg Tab, 10 MG PO DAILY 12/30/12 Medications in the ED Acetaminophen/ Hydrocodone Bitart 1 ea ONCE ONCE PO Last administered on 02/24/20at 17:58; Admin Dose 1 EA; Start 02/24/20 at 17:45; Stop 02/24/20 at 17:46; Status DC Ibuprofen 600 mg ONCE STAT PO Last administered on 02/24/20at 17:58; Admin Dose 600 MG; Start 02/24/20 at 17:41; Stop 02/24/20 at 17:44; Status DC EKATERINA OTOOLE MD Feb 24, 2020 18:32
--- NOTE | 2020-02-24 18:51 | Diagnostic Imaging Report ---
X-ray 3 views of the hand. HISTORY: Pain. COMPARISON: None available. FINDINGS: Bones: No acute displaced fracture. Osseous alignment is within normal limits. Joints: The joint spaces are well-maintained. Soft tissues: There is dorsal hand soft tissue swelling. IMPRESSION: Dorsal hand soft tissue swelling without acute fracture or dislocation. Signed by: Dilcia Parks MD on 02/24/2020 6:47 PM
[2020-02-24] MEDS ORDERED: TETANUS/DIPHTHERIA TOX ADULT 0.5 ML SYR ONE (19:12)
[2020-02-24] MEDS ORDERED: TETANUS/DIPHTHERIA TOX ADULT 0.5 ML SYR IM ONE (19:15)
--- OUTSIDE RECORDS SUMMARY | 2020-02-25 19:46 | XMS REPORT | Continuity of Care Document ---
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 Role Phone Spinzo Information Gust Unavailable Un available Problems Problem Status Onset Date Classification Date Reported Comments Source Benign Essential Hypertension Active 04/02/2013 [facility] Hyperlipidemia Active 04/02/2013 [facility] Hypothyroidism Active 04/02/2013 [facility] Medications Medication Details Route Status Patient Instructions Ordering Provider Order Date Source AmLODIPine Besylate 5 MG Oral Tablet ; Start Date: 04/02/2013; End Date: (Active) Active 04/02/2013 [facility] Diovan 320 MG Oral Tablet ; St art Date: 12/18/2012; End Date: (Active) Active 12/18/2012 [facility] Allergies, Adverse Reactions, Alerts Substance Category Reaction Severity Reaction type Status Date Reported Comments Source Not Known [facility] No Known Drug Allergies drug a llergy drug aller gy Active [facility] Immunizations Immunization Date Given Site Status Last Updated Comments Source Influenza 04/02/2013 completed [facility] Influenza 04/30/2012 completed [facility] Results No Data Provided for This Section Pathology Reports No Data Provided for This [...] Provider ADM Date DC Date Status Source AUDIT [id number] 12/20/2012 12/20/2012 [facility] AUDIT [id number] 03/23/2013 03/23/2013 [facility] AUDIT [id number] 04/02/2013 04/02/2013 [facility] Samson ACEVEDO deepika: ARIEL VARNER, Status: Laith, Time: 8:00 AM [id number] 05/04/2013 04/02/2013 [facility] Procedures No Data Provided for This Section Assessment and Plan No Data Provided for This Section Plan of Care Plan of Care Date Source [Q] LIPID PANEL WITH REFLEX TO DIRECT LD L 04/02/2013 Routine[QLH] CMP W/EGFR 04/02/2013 Routine[QLH] TSH, 3RD GENERATION W/REFLEX TO FT4 04/02/2013 Routine[QLH] CBC (INCLUDES DIFF/PLT) 04/02/2013 Routine[QLH] TESTOSTERONE, TOTAL 04/02/2013 Routine 04/02/2013 [facility] Social History Social History Date Source Marital History - Currently (Active) Never A Smoker (Active) Never Drank Alcohol (Active) Occupation: Retired (Active) 04/02/2013 [facility] Family History Value Date S ource Family history of Denial Of Any Signific ant Medical History (Active) 04/02/2013 [facility] Advance Directives Order Name Results Value Date Source Advance Directives Advance Dir ectives No Advance Directives available. 04/02/2013 [facility] Advance Directives Advance Dir ectives No Advance Directives available. 03/23/2013 [facility] Advance Directives Advance Dir ectives No Advance Directives available. 12/20/2012 [facility] Functional Status No Data Provided for This Section
--- OUTSIDE RECORDS SUMMARY | 2020-02-25 19:47 | XMS REPORT | Continuity of Care Document ---
Author Author [facility] t Organization [facility] Address [facility] [place] [address] Phone Unavailable Care Team Providers Care Inspector Golf Ball Name Role Phone GARDENIA YANCEY, S (NS) ARIEL PCP Guy Haney Attphys Unavailable PACO, ANDREW Attphys Unavailable KENZIE, Stephanie GILL Attphys Unavailable NHAN, James JO Attphys Unavailable Payers Payer Name Policy Type Policy Number Effective Date Expiration Date [facility] Medicare A & B [id number] 2012 00:00:00 C [facility] Problems Condition Name Condition Details Condition Category Status Onset Date Resolution Date Last Treatment Date Treating Clinician Comments Source Benign Essential Hypertension Benign Essential Hypertension Active 04/02/2013 [facility] Problem Active 2013-04-02 18:32:12 Corina Bergman Hyperlipidemia Hype rlipidemia Active 04/02/2013 [facility] Problem Active 2013-04-02 18:32:12 M emosunny Bergman Hypothyroidism Hypo thyroidism Active 04/02/2013 [facility] Problem Active 2013-04-02 18:32:12 M mary ann Bergman Allergies, Adverse Reactions, Alerts Allergy Name Allergy Type Status Severity Reaction(s) Onset Date Inacti ve Date Treating Clinician Comments Source Not Known Not Known Active Philippe Bergman No Known Drug Allergies No Known Drug Allergies Active Corina Bergman Family History Family Member Diagnosis Comments Start Date Stop Date Source Unknown Family Member Family History 2013-04-02 18:32:12 2 18:32:12 Corina Bergman Social History Social Habit Start Date Stop Date Quantity Comments Source Social History 2013-04-02 18:32:12 2013-04-02 18:32:12 [facility] Medications Ordered Medication Name Filled Medication Name Start Date Stop Da te Current Medication? Ordering Clinician Indication Dosage Frequency Signature (SIG) Comments Components Source AmLODIPine Besylate 5 MG Oral Tablet 2013-04-02 06:00:00 Ye s ; Start Date: 04/02/2013; End Date: (Active) [facility] Diovan 320 MG Oral Tablet 2012-12-18 05:00:00 Yes ; Start Date: 12/18/2012; End Date: (Active) [facility] Acetaminophen With Codeine (Tylenol With Codeine #3 Ta blet) 1 Each Tablet Acetaminophen With Codeine (Tylenol With Codeine #3 Tablet) 1 Each Tablet Yes 300 Every 6 Hours as needed for Mild Pain (1 -3) Or Fever>100.8 [facility] Amlodipine Besylate (Norvasc) 5 Mg Tab Amlodipine Besylate (Norv asc) 5 Mg Tab Yes 10 Daily [facility] Atorvastatin Calcium 20 Mg Tablet Atorvastatin Calcium 20 Mg Tablet Yes 20 Daily [facility] Fluconazole (Diflucan) 100 Mg Tablet Fluconazole (Diflucan) 100 Mg Tablet Yes 100 Daily [facility] Levofloxacin (Levaquin) 500 Mg Tablet Levofloxacin (Levaquin) 500 M g Tablet Yes 250 Daily [facility] Losartan Potassium 100 Mg Tablet Losartan Potassium 100 Mg Tablet Yes 100 Daily [facility] Levofloxacin (Levaquin) 500 Mg Tablet, 500 Mg Oral Lev ofloxacin (Levaquin) 500 Mg Tablet, 500 Mg Oral 2018-10-27 00:00:00 No 500 D aily [facility] Valsartan (Diovan) 320 Mg Tablet, 320 Mg Oral Valsarta n (Diovan) 320 Mg Tablet, 320 Mg Oral 2018-10-27 00:00:00 No 320 Daily [facility] Levothyroxine Sodium 50 Mcg Tablet, 50 Mcg Oral Levoth yroxine Sodium 50 Mcg Tablet, 50 Mcg Oral 2017-10-05 00:00:00 No 50 Jane y [facility] Meloxicam (Mobic*) 7.5 Mg Tablet, 7.5 Mg Oral Meloxica m (Mobic*) 7.5 Mg Tablet, 7.5 Mg Oral 2017-10-05 00:00:00 No 7.5 Every 12 Lisa rs [facility] Penicillin V Potassium 500 Mg Tablet, 500 Mg Oral Peni cillin V Potassium 500 Mg Tablet, 500 Mg Oral 2017-10-05 00:00:00 No 500 Thre e Times A Day [facility] Tamsulosin Hcl (Flomax*) 0.4 Mg Cap, 0.4 Mg Oral Tamsu losin Hcl (Flomax*) 0.4 Mg Cap, 0.4 Mg Oral 2017-10-05 00:00:00 No .4 Twice A Day [facility] Procedures Procedure Date / Time Performed Performing Clinician [facility] brooklynn TURP (transurethral resection of prostate) 2018-10-29 00:00:00 H ANDREW CR [facility] X-ray of chest, two views 2018-10-27 00:00:00 ANDREW ANTONIO [facility] Computed tomography of abdomen and pelvis with contrast 2018 00:00:00 MARCOS PENG [facility] Plan of Care Planned Activity Planned Date Details Comments Source Future Scheduled Test 2013-04-02 18:32:12 Plan of Care [code = 1877 6-5] [facility] Encounters Start Date/Time End Date/Time Encounter Type Admission Type [facility] Care Department Encounter ID Source 2018-11-04 09:32:00 2018-11-04 09:32:00 Registered Emergency Room [facility] [id number] [facility] 2018-10-29 10:04:00 2018-10-30 18:29:00 Discharged Inpatient 3 PACO ANDREW [facility] [id number] [facility] 2018-07-07 15:53:00 2018-07-07 22:25:00 Departed Emergency Room 1 JAIRO ESPINO [facility] [id number] [facility] 2017-10-05 20:24:00 2017-10-05 22:57:00 Departed Emergency Room 1 DEYSI JUSTIN [facility] [id number] [facility] 2017-05-04 03:59:00 2017-05-04 06:01:00 Departed Emergency Room [facility] [id number] [facility] 2013-04-02 12:32:13 2013-04-02 12:32:12 Outpatient [facility] [id number] 2013-03-23 17:17:32 2013-03-23 17:17:32 Outpatient [facility] [id number] 2012-12-20 05:12:01 2012-12-20 05:11:41 Outpatient [facility]IE [id number] Results Test Description Test Time Test Comments Results Result Comments Source HAND 3+ VIEWS LEFT 2020-02-24 18:44:00 [facility] 1945 Sex: [place] [address] Patient Name: ANGELICA GILLILAND MR #: [id number] : 1945 Age/Sex: 74/M Req #: [id number] [facility] Physician: Ordered by: MARY ANNE SAMUELS MD Report #: [id number] Location: ER Room/Bed: Procedure: [id number] DX/HAND 3+ VIEWS LEFT Exam Date: 02/24/20 Exam Time: 1800 REPORT STATUS: Signed X-ray 3 views of the hand. HISTORY: Pain. COMPARISON: None available. FINDINGS: Bones: No acute displaced fracture. Osseous alignment is within normal limits. Joints: The joint spaces are well-maintained. Soft tissues: There is dorsal hand soft tissue swelling. IMPRESSION: Dorsal hand soft tissue swelling without acute fracture or dislocation. Signed by: Naif Baez MD on 02/24/2020 6:47 PM Dictated By: NAIF BAEZ MD 46 Transcribed By: QUINTON on 02/24/201846 COPY TO: MARY ANNE SAMUELS MD Sodium Level 2018-11-04 11:45:00 Test Item Sodium Level (test code = 2951-2) 140 136-145 [facility]Pot[facility] Rjnrq3814-16-23 11:45:00* Test Item Value Reference Range Interpretation Comments Potassium Level (test code = 2823-3) 3.9 3.5-5.1 [facility] CenterChloride Kjzez0789-59-60 11:45:00* Test Item Value Reference Range Interpretation Comments Chloride Level (test code = 2075-0) 104 98-107 [facility] CenterCarbon Dioxide Ghnna6390-55-33 11:45:00* Test Item Value Reference Range Interpretation Comments Carbon Dioxide Level (test code = 2028-9) 28 22-29 [facility] CenterAnion Svt2394-26-20 11:45:00* Test Item Value Reference Range Interpretation Comments Anion Gap (test code = 75411-4) 11.9 8-16 [facility] CenterBlood Urea Doayvthx9441-03-48 11:45:00* Test Item Value Reference Range Interpretation Comments Blood Urea Nitrogen (test code = 3094-0) 22 7-26 [facility] CenterCreatinine2019-07-16 11:45:00* Test Item Value Reference Range Interpretation Comments Creatinine (test code = 2160-0) 0.84 0.72-1.25 [facility] CenterBUN/Creatinine Ynxyc5047-26-49 11:45:00* Test Item Value Reference Range Interpretation Comments BUN/Creatinine Ratio (test code = 3097-3) 26 6-25 H [facility] CenterEstimat Glomerular Filtration Rate 2018-11-04 11:45:00* Test Item Value Reference Range Interpretation Comments Estimat Glomerular Filtration Rate (test code = 494275986) > 60 >60 Ranges were taken from the National Kidney Disease Education Program and the [facility] Kidney Foundation literature.Reference ranges:60 or greater: Vzyton69-87 ( for 3 consecutive months): Chronic kidney disease 15 or less: Kidney failureHendrick Medical CenterGlucose Mctoh4527-36-40 11:45:00* Test Item Value Reference Range Interpretation Comments Glucose Level (test code = BVP3117) 100 74-118 [facility] CenterCalcium Dentv1279-18-75 11:45:00* Test Item Value Reference Range Interpretation Comments Calcium Level (test code = 31922-4) 9.5 8.4-10.2 [facility] CenterTotal Wvdgvyfgj3048-06-77 11:45:00* Test Item Value Reference Range Interpretation Comments Total Bilirubin (test code = 1975-2) 0.6 0.2-1.2 [facility] CenterAspartate Amino Transf (AST/SGOT) 2018-11-04 11:45:00* Test Item Value Reference Range Interpretation Comments Aspartate Amino Transf (AST/SGOT) (test code = Aspartate Amino Transf (AST/SGOT)) 18 5-34 [facility] CenterAlanine Aminotransferase (ALT/SGPT) 2018-11-04 11:45:00* Test Item Value Reference Range Interpretation Comments Alanine Aminotransferase (ALT/SGPT) (test code = 1742-6) 28 0-55 [facility] CenterTotal Xspuehn1128-33-34 11:45:00* Test Item Value Reference Range Interpretation Comments Total Protein (test code = 2885-2) 7.2 6.5-8.1 [facility] CenterAlbumin2019-07-16 11:45:00* Test Item Value Reference Range Interpretation Comments Albumin (test code = 1751-7) 3.7 3.5-5.0 [facility] CenterGlobulin2019-07-16 11:45:00* Test Item Value Reference Range Interpretation Comments Globulin (test code = 97625-5) 3.5 2.3-3.5 [facility] CenterAlbumin/Globulin Vvfdp4105-38-61 11:45:00 * Test Item Value Reference Range Interpretation Comments Albumin/Globulin Ratio (test code = 1759-0) 1.1 0.8-2.0 [facility] CenterAlkaline Jyugjykadrf8154-36-07 11:45:00* Test Item Value Reference Range Interpretation Comments Alkaline Phosphatase (test code = 6768-6) 89 40-150 [facility] CenterUrine CNS1227-39-25 11:40:00* Test Item Value Reference Range Interpretation Comments Urine WBC (test code = 5821-4) 6-10 0-5 H [facility] CenterUrine BLM8223-17-80 11:40:00* Test Item Value Reference Range Interpretation Comments Urine RBC (test code = 08217-1) >50 0-5 H [facility] CenterUrine Snexxezd4804-63-36 11:40:00* Test Item Value Reference Range Interpretation Comments Urine Bacteria (test code = 91420-4) MODERATE NONE H [facility] CenterUrine Epithelial Cfytu8529-33-13 11:40:00 * Test Item Value Reference Range Interpretation Comments Urine Epithelial Cells (test code = 52926-9) MODERATE NONE [facility] CenterUrine Fmaie3314-95-23 11:39:00* Test Item Value Reference Range Interpretation Comments Urine Color (test code = 5778-6) BROWN YELLOW H [facility] CenterUrine Urcpknc5100-07-84 11:39:00* Test Item Value Reference Range Interpretation Comments Urine Clarity (test code = 82848-4) CLOUDY CLEAR H [facility] CenterUrine Specific Ohicgcb5956-94-67 11:39:00 * Test Item Value Reference Range Interpretation Comments Urine Specific Mercer (test code = 5811-5) 1.020 1.010-1.02 5 [facility] CenterUrine iL5020-63-46 11:39:00* Test Item Value Reference Range Interpretation Comments Urine pH (test code = 74153-2) 7 5-7 [facility] CenterUrine Leukocyte Ijjigjkv7987-38-66 11:39:00* Test Item Value Reference Range Interpretation Comments Urine Leukocyte Esterase (test code = 84240-5) TRACE NEGATIV E H [facility] CenterUrine Dvqiqhf2222-22-12 11:39:00* Test Item Value Reference Range Interpretation Comments Urine Nitrite (test code = 26802-3) POSITIVE NEGATIVE [facility] Fcofago9286-80-30 11:39:00* Test Item Value Reference Range Interpretation Comments Urine Protein (test code = 09295-4) 3+ NEGATIVE H [facility] CenterUrine Glucose (UA)2018-11-04 11:39:00* Test Item Value Reference Range Interpretation Comments Urine Glucose (UA) (test code = 15031-8) 1+ NEGATIVE H [facility] CenterUrine Axgwply2922-17-60 11:39:00* Test Item Value Reference Range Interpretation Comments Urine Ketones (test code = 39164-9) NEGATIVE NEGATIVE [facility] CenterUrine Bayjycvosdni7092-57-27 11:39:00* Test Item Value Reference Range Interpretation Comments Urine Urobilinogen (test code = 81163-4) 1 0.2-1 [facility] CenterUrine Kuzsleekb9854-30-24 11:39:00* Test Item Value Reference Range Interpretation Comments Urine Bilirubin (test code = 1977-8) MODERATE NEGATIVE [facility] CenterUrine Nkoyq4513-18-57 11:39:00* Test Item Value Reference Range Interpretation Comments Urine Blood (test code = 97442-1) 3+ NEGATIVE [facility] CenterWhite Blood Ichkm6855-12-57 11:36:00* Test Item Value Reference Range Interpretation Comments White Blood Count (test code = 6690-2) 10.79 4.8-10.8 [facility] CenterRed Blood Cammm0462-53-62 11:36:00* Test Item Value Reference Range Interpretation Comments Red Blood Count (test code = 789-8) 4.76 4.3-5.7 [facility] CenterHemoglobin2019-07-16 11:36:00* Test Item Value Reference Range Interpretation Comments Hemoglobin (test code = 85736-0) 14.1 14.0-18.0 [facility] CenterHematocrit2019-07-16 11:36:00* Test Item Value Reference Range Interpretation Comments Hematocrit (test code = 4544-3) 43.2 38.2-49.6 [facility] CenterMean Corpuscular Egtrti1203-24-33 11:36:00* Test Item Value Reference Range Interpretation Comments Mean Corpuscular Volume (test code = 787-2) 90.8 81-99 [facility] CenterMean Corpuscular Nvefpmsuhx4845-41-87 11:36:00* Test Item Value Reference Range Interpretation Comments Mean Corpuscular Hemoglobin (test code = 785-6) 29.6 28-32 [facility] Corp[facility] Hemoglobin Concent 2018-11-04 11:36:00* Test Item Value Reference Range Interpretation Comments Mean Corpuscular Hemoglobin Concent (test code = 786-4) 32.6 31-35 [facility] CenterRed Cell Distribution Jsftq1062-11-79 11:36:00* Test Item Value Reference Range Interpretation Comments Red Cell Distribution Width (test code = 04221-9) 13.5 11.7 -14.4 [facility] CenterPlatelet Ysflp7895-97-15 11:36:00* Test Item Value Reference Range Interpretation Comments Platelet Count (test code = 777-3) 253 140-360 [facility] CenterNeutrophils (%) (Auto)2018-11-04 11:36:00 * Test Item Value Reference Range Interpretation Comments Neutrophils (%) (Auto) (test code = 02868-6) 68.7 38.7-80.0 [facility] CenterLymphocytes (%) (Auto)2018-11-04 11:36:00 * Test Item Value Reference Range Interpretation Comments Lymphocytes (%) (Auto) (test code = 736-9) 21.2 18.0-39.1 [facility] CenterMonocytes (%) (Auto)2018-11-04 11:36:00* Test Item Value Reference Range Interpretation Comments Monocytes (%) (Auto) (test code = 5905-5) 6.9 4.4-11.3 [facility] CenterEosinophils (%) (Auto)2018-11-04 11:36:00 * Test Item Value Reference Range Interpretation Comments Eosinophils (%) (Auto) (test code = 713-8) 2.0 0.0-6.0 [facility] CenterBasophils (%) (Auto)2018-11-04 11:36:00* Test Item Value Reference Range Interpretation Comments Basophils (%) (Auto) (test code = 706-2) 0.4 0.0-1.0 [facility] CenterIM GRANULOCYTES %2018-11-04 11:36:00* Test Item Value Reference Range Interpretation Comments IM GRANULOCYTES % (test code = IM GRANULOCYTES %) 0.8 0.0- 1.0 [facility] CenterNeutrophils # (Auto)2018-11-04 11:36:00* Test Item Value Reference Range Interpretation Comments Neutrophils # (Auto) (test code = 751-8) 7.4 2.1-6.9 H [facility] CenterLymphocytes # (Auto)2018-11-04 11:36:00* Test Item Value Reference Range Interpretation Comments Lymphocytes # (Auto) (test code = 24369-7) 2.3 1.0-3.2 [facility] CenterMonocytes # (Auto)2018-11-04 11:36:00* Test Item Value Reference Range Interpretation Comments Monocytes # (Auto) (test code = 742-7) 0.7 0.2-0.8 [facility] CenterEosinophils # (Auto)2018-11-04 11:36:00* Test Item Value Reference Range Interpretation Comments Eosinophils # (Auto) (test code = 711-2) 0.2 0.0-0.4 [facility] CenterBasophils # (Auto)2018-11-04 11:36:00* Test Item Value Reference Range Interpretation Comments Basophils # (Auto) (test code = 704-7) 0.0 0.0-0.1 [facility] CenterAbsolute Immature Granulocyte (auto 2018-11-04 11:36:00* Test Item Value Reference Range Interpretation Comments Absolute Immature Granulocyte (auto (aileen t code = Absolute Immature Granulocyte (auto) 0.09 0-0.1 [facility] CenterWhite Blood Rdcak6745-37-65 07:07:00* Test Item Value Reference Range Interpretation Comments White Blood Count (test code = 6690-2) 19.55 4.8-10.8 H [facility] CenterRed Blood Xcnif0980-03-97 07:07:00* Test Item Value Reference Range Interpretation Comments Red Blood Count (test code = 789-8) 4.43 4.3-5.7 [facility] CenterHemoglobin2019-07-11 07:07:00* Test Item Value Reference Range Interpretation Comments Hemoglobin (test code = 02551-5) 13.1 14.0-18.0 L [facility] CenterHematocrit2019-07-11 07:07:00* Test Item Value Reference Range Interpretation Comments Hematocrit (test code = 4544-3) 40.5 38.2-49.6 [facility] CenterMean Corpuscular Nemayu6969-14-65 07:07:00* Test Item Value Reference Range Interpretation Comments Mean Corpuscular Volume (test code = 787-2) 91.4 81-99 [facility] CenterMean Corpuscular Kppkvmgfzg5319-31-70 07:07:00* Test Item Value Reference Range Interpretation Comments Mean Corpuscular Hemoglobin (test code = 785-6) 29.6 28-32 [facility] CenterMean Corpuscular Hemoglobin Concent 2018-10-30 07:07:00* Test Item Value Reference Range Interpretation Comments Mean Corpuscular Hemoglobin Concent (test code = 786-4) 32.3 31-35 [facility] CenterRed Cell Distribution Pfubk5016-26-43 07:07:00* Test Item Value Reference Range Interpretation Comments Red Cell Distribution Width (test code = 56078-3) 13.5 11.7 -14.4 [facility] CenterPlatelet Vpcoy6008-48-52 07:07:00* Test Item Value Reference Range Interpretation Comments Platelet Count (test code = 777-3) 207 140-360 [facility] CenterNeutrophils (%) (Auto)2018-10-30 07:07:00 * Test Item Value Reference Range Interpretation Comments Neutrophils (%) (Auto) (test code = 84681-4) 86.0 38.7-80.0 H [facility] CenterLymphocytes (%) (Auto)2018-10-30 07:07:00 * Test Item Value Reference Range Interpretation Comments Lymphocytes (%) (Auto) (test code = 736-9) 9.3 18.0-39.1 L [facility] CenterMonocytes (%) (Auto)2018-10-30 07:07:00* Test Item Value Reference Range Interpretation Comments Monocytes (%) (Auto) (test code = 5905-5) 4.0 4.4-11.3 L [facility] CenterEosinophils (%) (Auto)2018-10-30 07:07:00 * Test Item Value Reference Range Interpretation Comments Eosinophils (%) (Auto) (test code = 713-8) 0.0 0.0-6.0 [facility] CenterBasophils (%) (Auto)2018-10-30 07:07:00* Test Item Value Reference Range Interpretation Comments Basophils (%) (Auto) (test code = 706-2) 0.1 0.0-1.0 [facility] CenterIM GRANULOCYTES %2018-10-30 07:07:00* Test Item Value Reference Range Interpretation Comments IM GRANULOCYTES % (test code = IM GRANULOCYTES %) 0.6 0.0- 1.0 [facility] CenterNeutrophils # (Auto)2018-10-30 07:07:00* Test Item Value Reference Range Interpretation Comments Neutrophils # (Auto) (test code = 751-8) 16.8 2.1-6.9 H [facility] CenterLymphocytes # (Auto)2018-10-30 07:07:00* Test Item Value Reference Range Interpretation Comments Lymphocytes # (Auto) (test code = 41339-5) 1.8 1.0-3.2 [facility] CenterMonocytes # (Auto)2018-10-30 07:07:00* Test Item Value Reference Range Interpretation Comments Monocytes # (Auto) (test code = 742-7) 0.8 0.2-0.8 [facility] CenterEosinophils # (Auto)2018-10-30 07:07:00* Test Item Value Reference Range Interpretation Comments Eosinophils # (Auto) (test code = 711-2) 0.0 0.0-0.4 [facility] CenterBasophils # (Auto)2018-10-30 07:07:00* Test Item Value Reference Range Interpretation Comments Basophils # (Auto) (test code = 704-7) 0.0 0.0-0.1 [facility] CenterAbsolute Immature Granulocyte (auto 2018-10-30 07:07:00* Test Item Value Reference Range Interpretation Comments Absolute Immature Granulocyte (auto (aileen t code = Absolute Immature Granulocyte (auto) 0.12 0-0.1 H [facility]wayodium Ytvjf9133-93-99 07:03:00* Test Item Value Reference Range Interpretation Comments Sodium Level (test code = 2951-2) 141 136-145 [facility] CenterPotassium Ammcu4477-91-68 07:03:00* Test Item Value Reference Range Interpretation Comments Potassium Level (test code = 2823-3) 4.0 3.5-5.1 [facility] CenterChloride Wuaoe5222-21-94 07:03:00* Test Item Value Reference Range Interpretation Comments Chloride Level (test code = 2075-0) 107 98-107 [facility] CenterCarbon Dioxide Waivj5559-01-55 07:03:00* Test Item Value Reference Range Interpretation Comments Carbon Dioxide Level (test code = 2028-9) 28 22-29 [facility] CenterAnion Dpy5743-39-76 07:03:00* Test Item Value Reference Range Interpretation Comments Anion Gap (test code = 01134-0) 10.0 8-16 [facility] CenterBlood Urea Gosmfjkq9284-35-38 07:03:00* Test Item Value Reference Range Interpretation Comments Blood Urea Nitrogen (test code = 3094-0) 11 7-26 [facility] CenterCreatinine2019-07-11 07:03:00* Test Item Value Reference Range Interpretation Comments Creatinine (test code = 2160-0) 0.67 0.72-1.25 L [facility] CenterBUN/Creatinine Wtifx0337-31-42 07:03:00* Test Item Value Reference Range Interpretation Comments BUN/Creatinine Ratio (test code = 3097-3) 16 6-25 [facility] CenterEstimat Glomerular Filtration Rate 2018-10-30 07:03:00* Test Item Value Reference Range Interpretation Comments Estimat Glomerular Filtration Rate (test code = 985752813) > 60 >60 Ranges were taken from the National Kidney Disease Education Program and the [facility] Kid[facility] Foundation literature.Reference ranges:60 or greater: Mnepwt01-81 ( for 3 consecutive months): Chronic kidney disease 15 or less: Kidney failureHendrick Medical CenterGlucose Ggrai7409-80-34 07:03:00* Test Item Value Reference Range Interpretation Comments Glucose Level (test code = NYQ6164) 160 74-118 H [facility] CenterCalcium Zuasl0883-08-34 07:03:00* Test Item Value Reference Range Interpretation Comments Calcium Level (test code = 73594-4) 8.6 8.4-10.2 [facility] CenterMagnesium Ujklp3622-09-66 13:06:00* Test Item Value Reference Range Interpretation Comments Magnesium Level (test code = 98678-8) 1.8 1.3-2.1 [facility] CenterMagnesium Hsygu2256-96-61 13:06:00* Test Item Value Reference Range Interpretation Comments Magnesium Level (test code = 08434-2) 1.8 1.3-2.1 [facility] CenterCHEST 2 MNMJC2701-07-74 11:34:00 [facility] [address] [address] Patient Name: ANGELICA GILLILAND MR #: [id number] : 1945 Age/Sex: 72/M Req #: [id number] Adm Physician: Ordered by: ANDREW ANTONIO MD Report #: [id number] Location: OR Room/Bed: Procedure: [id number] DX/CHEST 2 VIEWS Exam Date: 10/27/18 Exam Time: 1047 REPORT STATUS: Signed EXAMINATION: CHEST 2 VIEWS INDICATION: Preoperative COMPARISON: FINDINGS: TUBES and LINES: None. LUNGS: The lung volumes are normal. No focal consolidation or pulmonary edema. PLEURA: No pleural effusion or pneumotho rax. HEART AND MEDIASTINUM: The cardiomediastinal silhouette is normal in size and contour. BONES AND SOFT TISSUES: No acute fracture or dislocatio n. UPPER ABDOMEN: No free air under the diaphragm. IMPRESSION: No f ocal pneumonia or pulmonary edema Signed by: Mora Patel MD on 10/27/2018 11: 35 AM Dictated By: MORA PATEL MD 1135 Transcribed By: QUINTON on 10/27/18 1135 COPY TO: ANDREW SALVADOR MD Urine ZED8434-83-34 19:24:00* Test Item Value Reference Range Interpretation Comments Urine WBC (test code = 5821-4) NONE 0-5 [facility] ESA8948-34-47 19:24:00* Test Item Value Reference Range Interpretation Comments Urine RBC (test code = 23541-0) NONE 0-5 [facility] Teeidqbo5633-20-09 19:24:00* Test Item Value Reference Range Interpretation Comments Urine Bacteria (test code = 56547-4) FEW NONE [facility] Epithelial Labzu6340-35-02 19:24:00 * Test Item Value Reference Range Interpretation Comments Urine Epithelial Cells (test code = 35802-1) RARE NONE [facility] Triple Phosphate Hozegfjq9584-90-34 19:24:00* Test Item Value Reference Range Interpretation Comments Urine Triple Phosphate Crystals (test code = 5814-9) FEW F EW [facility] GBY3683-53-75 19:24:00* Test Item Value Reference Range Interpretation Comments Urine WBC (test code = 5821-4) NONE 0-5 [facility] IDV0100-53-98 19:24:00* Test Item Value Reference Range Interpretation Comments Urine RBC (test code = 89352-8) NONE 0-5 [facility] Ogiuudkp5329-13-77 19:24:00* Test Item Value Reference Range Interpretation Comments Urine Bacteria (test code = 22485-8) FEW NONE [facility] Epithelial Woxfx5666-69-22 19:24:00 * Test Item Value Reference Range Interpretation Comments Urine Epithelial Cells (test code = 27413-0) RARE NONE [facility] Triple Phosphate Xfygojmh0842-17-24 19:24:00* Test Item Value Reference Range Interpretation Comments Urine Triple Phosphate Crystals (test code = 5814-9) FEW F EW [facility] Triple Phosphate Iufhrokf9094-26-59 19:24:00* Test Item Value Reference Range Interpretation Comments Urine Triple Phosphate Crystals (test code = 5814-9) FEW F EW [facility] Sxysh5451-61-54 19:11:00* Test Item Value Reference Range Interpretation Comments Urine Color (test code = 5778-6) YELLOW YELLOW [facility] Fhepgiq1495-77-76 19:11:00* Test Item Value Reference Range Interpretation Comments Urine Clarity (test code = 29289-0) SL CLOUDY CLEAR H [facility] Specific Pzygbry6595-54-39 19:11:00 * Test Item Value Reference Range Interpretation Comments Urine Specific [place] (test code = 5811-5) 1.015 1.010-1.02 5 [facility] nY7478-63-60 19:11:00* Test Item Value Reference Range Interpretation Comments Urine pH (test code = 60388-9) 8 5-7 H [facility] Leukocyte Qhwmshju0113-62-25 19:11:00* Test Item Value Reference Range Interpretation Comments Urine Leukocyte Esterase (test code = 5799-2) NEGATIVE NEGATIVE [facility] Bdyuiwr2266-94-14 19:11:00* Test Item Value Reference Range Interpretation Comments Urine Nitrite (test code = 42532-8) NEGATIVE NEGATIVE [facility] Oylfacm9312-51-81 19:11:00* Test Item Value Reference Range Interpretation Comments Urine Protein (test code = 5804-0) 1+ NEGATIVE H [facility] Glucose (UA)2018-07-07 19:11:00* Test Item Value Reference Range Interpretation Comments Urine Glucose (UA) (test code = 2349-9) NEGATIVE NEGATIVE [facility] Bmptzxq1098-17-07 19:11:00* Test Item Value Reference Range Interpretation Comments Urine Ketones (test code = 59803-7) NEGATIVE NEGATIVE [facility] Kiheupjgvvsd2141-28-57 19:11:00* Test Item Value Reference Range Interpretation Comments Urine Urobilinogen (test code = 95517-0) 0.2 0.2-1 [facility] Uhqmmtfaa3517-29-34 19:11:00* Test Item Value Reference Range Interpretation Comments Urine Bilirubin (test code = 1978-6) NEGATIVE NEGATIVE [facility] Lcgpa3713-88-67 19:11:00* Test Item Value Reference Range Interpretation Comments Urine Blood (test code = 15858-9) NEGATIVE NEGATIVE [facility] Jyltj6208-52-24 19:11:00* Test Item Value Reference Range Interpretation Comments Urine Color (test code = 5778-6) YELLOW YELLOW [facility] Mkgjqni1935-17-03 19:11:00* Test Item Value Reference Range Interpretation Comments Urine Clarity (test code = 50984-2) SL CLOUDY CLEAR H [facility] Specific Iwkxpie8941-57-02 19:11:00 * Test Item Value Reference Range Interpretation Comments Urine Specific [place] (test code = 5811-5) 1.015 1.010-1.02 5 [facility] kA5995-40-69 19:11:00* Test Item Value Reference Range Interpretation Comments Urine pH (test code = 08341-2) 8 5-7 H [facility] Leukocyte Hfnvkctv8216-55-18 19:11:00* Test Item Value Reference Range Interpretation Comments Urine Leukocyte Esterase (test code = 5799-2) NEGATIVE NEGATIVE [facility] Wcksfoc3764-36-29 19:11:00* Test Item Value Reference Range Interpretation Comments Urine Nitrite (test code = 58521-2) NEGATIVE NEGATIVE [facility] Kertowf5633-77-84 19:11:00* Test Item Value Reference Range Interpretation Comments Urine Protein (test code = 5804-0) 1+ NEGATIVE H [facility] Glucose (UA)2018-07-07 19:11:00* Test Item Value Reference Range Interpretation Comments Urine Glucose (UA) (test code = 2349-9) NEGATIVE NEGATIVE [facility] Bgrifub2904-83-92 19:11:00* Test Item Value Reference Range Interpretation Comments Urine Ketones (test code = 82346-5) NEGATIVE NEGATIVE [facility] Tndrfuekfunl2982-33-19 19:11:00* Test Item Value Reference Range Interpretation Comments Urine Urobilinogen (test code = 92669-1) 0.2 0.2-1 [facility] Jkvsmuned5496-73-33 19:11:00* Test Item Value Reference Range Interpretation Comments Urine Bilirubin (test code = 1978-6) NEGATIVE NEGATIVE [facility] Qzcbt4916-21-45 19:11:00* Test Item Value Reference Range Interpretation Comments Urine Blood (test code = 26527-0) NEGATIVE NEGATIVE [facility] CenterCT ABDOMEN/PELVIS M0708-56-02 18:27:00 [facility] [address] [address] Patient Name: ANGELICA GILLILAND MR #: [id number] : 1945 Age/Sex: 72/M Req #: [id number] Adm Physician: Ordered by: MARCOS PENG NP Report #: [id number] Location: ER Room/Bed: Procedure: [id number] C T/CT ABDOMEN/PELVIS W Exam Date: 07/07/18 Exam Time: 1740 REPORT STATUS: Signed EXAM INATION: CT of the abdomen and pelvis with contrast. TECHNIQUE: Spiral C T images of the abdomen and pelvis were performed from the lung bases to the l margo trochanters after the intravenous administration of 100 cc of Isovue 370 . Coronal and sagittal reformatted images were obtained. COMPARISON: None. CLINICAL HISTORY:Nausea vomiting diarrhea and a 72-year-old male DISCUSSION: ABDOMEN/PELVIS: LOWER THORAX:Unremarkable. HEPATOBIL IARY: No focal hepatic lesions. No intra or extrahepatic biliary ductal dilat ion. GALLBLADDER: No radio-opaque stones or sludge. No wall thickening. SPLEEN: No splenomegaly. PANCREAS: No focal masses or ductal dilatation. ADRENALS: Tiny nodule on the left adrenal gland measuring up to 6 mm is nonspecific. KIDNEYS/URETERS: No hydronephrosis, stones, or solid mass les ions. Bilateral parapelvic cysts. PELVIC ORGANS/BLADDER: The bladder is n ormal. PERITONEUM/RETROPERITONEUM: No free air or fluid. LYMPH NODES : No intra-abdominal, retroperitoneal, pelvic or inguinal lymphadenopathy. VESSELS: The celiac trunk,superior and inferior mesenteric and bilateral renal arteries are patent The portal, superior mesenteric and splenic veins are patent. GI TRACT: Mildly distended stomach. No bowel wall thickening. BONES AND SOFT TISSUE: No bony destructive lesions. Bilateral L5 pars defects with grade 1 anterolisthesis of L5 on S1. Severe degenerative disc height loss at L5-S1 with proliferative osteophytosis at that level. 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 No soft tissue abnormalities. IMPRESSION: No acute intra-ab dominal process is identified. Mildly distended stomach, clinical correlati on can be made for delayed gastric emptying on a nonemergent basis. 6 mm enhancing left adrenal nodule is nonspecific and in the absence of any known m alignancy, statistically this would represent an adenoma. If desired, a repeat study in one year could be performed. Signed by: Edmund Winkler MD on 2018 6:42 PM Dictated By: MAXI WINKLER MD 41 Transcribed By: QUINTON on 1841 COPY TO: MARCOS PENG NP Amylase Chxhc4738-95-87 16:46:00* Test Item Value Reference Range Interpretation Comments Amylase Level (test code = 1798-8) 43 25-125 [facility] CenterAm[facility] Qonfz7269-16-50 16:46:00* Test Item Value Reference Range Interpretation Comments Amylase Level (test code = 1798-8) 43 25-125 [facility] CenterAm[facility] Zynsf5643-82-21 16:46:00* Test Item Value Reference Range Interpretation Comments Amylase Level (test code = 1798-8) 43 25-125 [facility] Ygmjk5863-35-40 16:37:00* Test Item Value Reference Range Interpretation Comments Sodium Level (test code = 2951-2) 142 136-145 [facility] CenterPotassium Bopzh0076-19-12 16:37:00* Test Item Value Reference Range Interpretation Comments Potassium Level (test code = 2823-3) 3.6 3.5-5.1 [facility] CenterChloride Fluoi8295-42-55 16:37:00* Test Item Value Reference Range Interpretation Comments Chloride Level (test code = 2075-0) 103 98-107 [facility] CenterCarbon Dioxide Wyxau4024-08-63 16:37:00* Test Item Value Reference Range Interpretation Comments Carbon Dioxide Level (test code = 2028-9) 32 22-29 H [facility] CenterAnion Azb4635-29-45 16:37:00* Test Item Value Reference Range Interpretation Comments Anion Gap (test code = 05186-9) 10.6 8-16 [facility] CenterBlood Urea Krnseefg1093-29-53 16:37:00* Test Item Value Reference Range Interpretation Comments Blood Urea Nitrogen (test code = 3094-0) 18 7-26 [facility] CenterCreatinine2019-03-18 16:37:00* Test Item Value Reference Range Interpretation Comments Creatinine (test code = 2160-0) 0.87 0.72-1.25 [facility] CenterBUN/Creatinine Ibfbt2847-87-74 16:37:00* Test Item Value Reference Range Interpretation Comments BUN/Creatinine Ratio (test code = 3097-3) 21 6-25 [facility] CenterEstimat Glomerular Filtration Rate 2018-07-07 16:37:00* Test Item Value Reference Range Interpretation Comments Estimat Glomerular Filtration Rate (test code = 797051858) > 60 >60 Ranges were taken from the National Kidney Disease Education Program and the [facility] Foundation literature.Reference ranges:60 or greater: Ovpqfs79-36 ( for 3 consecutive months): Chronic kidney disease 15 or less: Kidney failureHendrick Medical CenterGlucose Xcymj0666-12-20 16:37:00* Test Item Value Reference Range Interpretation Comments Glucose Level (test code = NJM4616) 108 74-118 [facility] CenterCalcium Wdlbk1680-94-23 16:37:00* Test Item Value Reference Range Interpretation Comments Calcium Level (test code = 14362-7) 8.2 8.4-10.2 L [facility] CenterTotal Mdvdtzkle4485-57-27 16:37:00* Test Item Value Reference Range Interpretation Comments Total Bilirubin (test code = 1975-2) 0.6 0.2-1.2 [facility] CenterAspartate Amino Transf (AST/SGOT) 2018-07-07 16:37:00* Test Item Value Reference Range Interpretation Comments Aspartate Amino Transf (AST/SGOT) (test code = Aspartate Amino Transf (AST/SGOT)) 22 5-34 [facility] CenterAlanine Aminotransferase (ALT/SGPT) 2018-07-07 16:37:00* Test Item Value Reference Range Interpretation Comments Alanine Aminotransferase (ALT/SGPT) (test code = 1742-6) 29 0-55 [facility] CenterTotal Usqxoyg2692-24-98 16:37:00* Test Item Value Reference Range Interpretation Comments Total Protein (test code = 2885-2) 6.7 6.5-8.1 [facility] CenterAlbumin2019-03-18 16:37:00* Test Item Value Reference Range Interpretation Comments Albumin (test code = 1751-7) 3.6 3.5-5.0 [facility] CenterGlobulin2019-03-18 16:37:00* Test Item Value Reference Range Interpretation Comments Globulin (test code = 68799-2) 3.1 2.3-3.5 [facility] CenterAlbumin/Globulin Cmkmi6793-43-36 16:37:00 * Test Item Value Reference Range Interpretation Comments Albumin/Globulin Ratio (test code = 1759-0) 1.2 0.8-2.0 [facility] CenterAlkaline Otxzbglspve2821-87-70 16:37:00* Test Item Value Reference Range Interpretation Comments Alkaline Phosphatase (test code = 6768-6) 64 40-150 [facility] CenterLipase2019-03-18 16:37:00* Test Item Value Reference Range Interpretation Comments Lipase (test code = 3040-3) 16 8-78 [facility] CenterTotal Mxcmldkog4957-50-65 16:37:00* Test Item Value Reference Range Interpretation Comments Total Bilirubin (test code = 1975-2) 0.6 0.2-1.2 [facility] CenterAspartate Amino Transf (AST/SGOT) 2018-07-07 16:37:00* Test Item Value Reference Range Interpretation Comments Aspartate Amino Transf (AST/SGOT) (test code = Aspartate Amino Transf (AST/SGOT)) 22 5-34 [facility] CenterAlanine Aminotransferase (ALT/SGPT) 2018-07-07 16:37:00* Test Item Value Reference Range Interpretation Comments Alanine Aminotransferase (ALT/SGPT) (test code = 1742-6) 29 0-55 [facility] Ikyhiha1378-45-39 16:37:00* Test Item Value Reference Range Interpretation Comments Total Protein (test code = 2885-2) 6.7 6.5-8.1 [facility] CenterAlbumin2019-03-18 16:37:00* Test Item Value Reference Range Interpretation Comments Albumin (test code = 1751-7) 3.6 3.5-5.0 [facility] CenterGlobulin2019-03-18 16:37:00* Test Item Value Reference Range Interpretation Comments Globulin (test code = 08516-9) 3.1 2.3-3.5 [facility] CenterAlbumin/Globulin Rwnre7891-63-43 16:37:00 * Test Item Value Reference Range Interpretation Comments Albumin/Globulin Ratio (test code = 1759-0) 1.2 0.8-2.0 [facility] CenterAlkaline Axtxovwrgrv6884-83-50 16:37:00* Test Item Value Reference Range Interpretation Comments Alkaline Phosphatase (test code = 6768-6) 64 40-150 [facility] CenterLipase2019-03-18 16:37:00* Test Item Value Reference Range Interpretation Comments Lipase (test code = 3040-3) 16 [facility] CenterLipase2019-03-18 16:37:00* Test Item Value Reference Range Interpretation Comments Lipase (test code = 3040-3) 16 8-78 [facility] CenterWhite Blood Czdyy1265-81-98 16:22:00* Test Item Value Reference Range Interpretation Comments White Blood Count (test code = 6690-2) 9.97 4.8-10.8 [facility] CenterRed Blood Ompob5302-28-07 16:22:00* Test Item Value Reference Range Interpretation Comments Red Blood Count (test code = 789-8) 5.19 4.3-5.7 [facility] CenterHemoglobin2019-03-18 16:22:00* Test Item Value Reference Range Interpretation Comments Hemoglobin (test code = 74581-4) 15.7 14.0-18.0 [facility] CenterHematocrit2019-03-18 16:22:00* Test Item Value Reference Range Interpretation Comments Hematocrit (test code = 4544-3) 47.5 38.2-49.6 [facility] CenterMean Corpuscular Hdzbws0517-70-21 16:22:00* Test Item Value Reference Range Interpretation Comments Mean Corpuscular Volume (test code = 787-2) 91.5 81-99 [facility] CenterMean Corpuscular Prtpfjtzpp1613-97-31 16:22:00* Test Item Value Reference Range Interpretation Comments Mean Corpuscular Hemoglobin (test code = 785-6) 30.3 28-32 [facility] CenterMean Corpuscular Hemoglobin Concent 2018-07-07 16:22:00* Test Item Value Reference Range Interpretation Comments Mean Corpuscular Hemoglobin Concent (test code = 786-4) 33.1 31-35 [facility] CenterRed Cell Distribution Btijm6282-39-84 16:22:00* Test Item Value Reference Range Interpretation Comments Red Cell Distribution Width (test code = 47912-7) 13.7 11.7 -14.4 [facility] CenterPlatelet Cvsdt5474-07-34 16:22:00* Test Item Value Reference Range Interpretation Comments Platelet Count (test code = 777-3) 223 140-360 [facility] CenterNeutrophils (%) (Auto)2018-07-07 16:22:00 * Test Item Value Reference Range Interpretation Comments Neutrophils (%) (Auto) (test code = 34063-7) 75.8 38.7-80.0 [facility] CenterLymphocytes (%) (Auto)2018-07-07 16:22:00 * Test Item Value Reference Range Interpretation Comments Lymphocytes (%) (Auto) (test code = 736-9) 15.6 18.0-39.1 L [facility] CenterMonocytes (%) (Auto)2018-07-07 16:22:00* Test Item Value Reference Range Interpretation Comments Monocytes (%) (Auto) (test code = 5905-5) 6.3 4.4-11.3 [facility] CenterEosinophils (%) (Auto)2018-07-07 16:22:00 * Test Item Value Reference Range Interpretation Comments Eosinophils (%) (Auto) (test code = 713-8) 1.8 0.0-6.0 [facility] CenterBasophils (%) (Auto)2018-07-07 16:22:00* Test Item Value Reference Range Interpretation Comments Basophils (%) (Auto) (test code = 706-2) 0.2 0.0-1.0 [facility] CenterIM GRANULOCYTES %2018-07-07 16:22:00* Test Item Value Reference Range Interpretation Comments IM GRANULOCYTES % (test code = IM GRANULOCYTES %) 0.3 0.0- 1.0 [facility] CenterNeutrophils # (Auto)2018-07-07 16:22:00* Test Item Value Reference Range Interpretation Comments Neutrophils # (Auto) (test code = 751-8) 7.6 2.1-6.9 H [facility] CenterLymphocytes # (Auto)2018-07-07 16:22:00* Test Item Value Reference Range Interpretation Comments Lymphocytes # (Auto) (test code = 08808-8) 1.6 1.0-3.2 [facility] CenterMonocytes # (Auto)2018-07-07 16:22:00* Test Item Value Reference Range Interpretation Comments Monocytes # (Auto) (test code = 742-7) 0.6 0.2-0.8 [facility] CenterEosinophils # (Auto)2018-07-07 16:22:00* Test Item Value Reference Range Interpretation Comments Eosinophils # (Auto) (test code = 711-2) 0.2 0.0-0.4 [facility] CenterBasophils # (Auto)2018-07-07 16:22:00* Test Item Value Reference Range Interpretation Comments Basophils # (Auto) (test code = 704-7) 0.0 0.0-0.1 [facility] CenterAbsolute Immature Granulocyte (auto 2018-07-07 16:22:00* Test Item Value Reference Range Interpretation Comments Absolute Immature Granulocyte (auto (aileen t code = Absolute Immature Granulocyte (auto) 0.03 0-0.1 [facility] CenterUrine Yikmamo5204-27-14 07:55:00* Test Item Value Reference Range Interpretation Comments Urine Culture (test code = 630-4) Organism: STREP AGALACTIAE GROUP B [facility] CenterUS TESTICULAR DOPPLER SDH0954-39-63 22:20:00 [facility] [address] [place] [address] Patient Name: ANGELICA GILLILAND MR #: [id number] : 1945 Age/Sex: 71/M Req #: [id number] Adm Physician: Ordered by: DEYSI JUSTIN MD Report #: [id number] Location: ER Room/Bed: Procedure: [id number] US/US TESTICULAR DOPPLER LTD Exam Date: 10/05/17 Exam Time: 2129 REPORT STATUS: Signed EXAM: US TESTICULAR DOPPLER LTD DATE: 10/05/2017 12:00 AM Time stamp on exam: 2132 hours INDICATION: Left testicular swelling and pain COMPARISON: None TECHNIQUE: Grayscale and color Doppler images of the testic les and scrotal contents were obtained. Arterial and venous flow the testicles evaluated with spectral waveform analysis FINDINGS: RIGHT: The r ight testicle measures 3.5 x 1.9 x 2.6 cm. No testicular masses. Normal flow by color doppler and spectral waveform analysis of the arterial and venous liudmila w. Normal appearance of the epididymis. Moderate right hydrocele with echogeni c debris. No varicocele. LEFT: The left testicle measures 2.7 x 2.7 x 2.5 cm. No testicular masses. Normal flow by color doppler and spectral wavef orm analysis of the arterial and venous flow. Mildly prominent and hypervascul ar epididymal head. Large hydrocele with echogenic debris. No varicocele. In cidental left epididymal head cyst measuring 9 mm. IMPRESSION: 1. Norm al sonographic appearance of the testicles without evidence of torsion. 2. Possible early left epididymitis. 3. Moderate right and large left hydrocel es. Signed by: Dr. Maribeth Benjamin M.D. on 10/05/2017 10:23 PM Dictated By: MARIBETH BENJAMIN MD 1038 Transcribed By: QUINTNO on 10/07/17 1038 COPY TO: DEYSI WIGGINS MD SKFOFZLPVQ3532-53-72 22:20:[address] [address] Patient Name: ANGELICA GILLILAND MR #: [id number] : 1945 Age/Sex: 71/M Req #: [id number] Adm Physician: Ordered by: DEYSI JUSTIN MD Report #: [id number] [facility] Procedure: [id number] US/US TESTICULAR Exam Da te: 10/05/17 Exam Time: 2129 REPORT STATUS: Sig tara EXAM: US TESTICULAR DOPPLER LTD DATE: 10/05/2017 12:00 AM Time stamp o n exam: 2132 hours INDICATION: Left testicular swelling and pain COMPARISON : None TECHNIQUE: Grayscale and color Doppler images of the testicles and scro terry contents were obtained. Arterial and venous flow the testicles evaluated w ith spectral waveform analysis FINDINGS: RIGHT: The right testicl e measures 3.5 x 1.9 x 2.6 cm. No testicular masses. Normal flow by color dop pler and spectral waveform analysis of the arterial and venous flow. Normal ap pearance of the epididymis. Moderate right hydrocele with [...] By: QUINTON on 10/07/17 1038 COPY TO: NICA JUSTIN MD Sodium Ihzgz1995-28-59 21:12:00* Test Item Value Reference Range Interpretation Comments Sodium Level (test code = 2951-2) 141 136-145 [facility] CenterPotassium Hsuyp5023-07-81 21:12:00* Test Item Value Reference Range Interpretation Comments Potassium Level (test code = 2823-3) 3.7 3.5-5.1 [facility] CenterChloride Afouy5968-97-24 21:12:00* Test Item Value Reference Range Interpretation Comments Chloride Level (test code = 2075-0) 105 98-107 [facility] CenterCarbon Dioxide Hycbh1096-77-40 21:12:00* Test Item Value Reference Range Interpretation Comments Carbon Dioxide Level (test code = 2028-9) 29 22-29 [facility] CenterAnion Shk8873-30-39 21:12:00* Test Item Value Reference Range Interpretation Comments Anion Gap (test code = 34918-0) 10.7 8-16 [facility] CenterBlood Urea Tddcqoza0506-30-95 21:12:00* Test Item Value Reference Range Interpretation Comments Blood Urea Nitrogen (test code = 3094-0) 16 7-26 [facility] CenterCreatinine2018-06-16 21:12:00* Test Item Value Reference Range Interpretation Comments Creatinine (test code = 2160-0) 0.74 0.72-1.25 [facility] CenterBUN/Creatinine Kenqf7206-63-54 21:12:00* Test Item Value Reference Range Interpretation Comments BUN/Creatinine Ratio (test code = 3097-3) 22 6- [facility] CenterEstimat Glomerular Filtration Rate 2017-10-05 21:12:00* Test Item Value Reference Range Interpretation Comments Estimat Glomerular Filtration Rate (test code = 20566-3) 60- >60 Ranges were taken from the National Kidney Disease Education Program and the [facility] Kid[facility] Foundation literature.Reference ranges:60 or greater: Bgftmy57-24 ( for 3 consecutive months): Chronic kidney disease 15 or less: Kidney failureHendrick Medical CenterGlucose Ycwim8858-62-39 21:12:00* Test Item Value Reference Range Interpretation Comments Glucose Level (test code = ORP7070) 142 74-118 H [facility] CenterCalcium Tszhg5542-35-49 21:12:00* Test Item Value Reference Range Interpretation Comments Calcium Level (test code = 31809-8) 9.4 8.4-10.2 [facility] CenterTotal Stocwdjnq4850-72-17 21:12:00* Test Item Value Reference Range Interpretation Comments Total Bilirubin (test code = 1975-2) 0.4 0.2-1.2 [facility] CenterAspartate Amino Transf (AST/SGOT) 2017-10-05 21:12:00* Test Item Value Reference Range Interpretation Comments Aspartate Amino Transf (AST/SGOT) (test code = Aspartate Amino Transf (AST/SGOT)) 26 5-34 [facility] CenterAlanine Aminotransferase (ALT/SGPT) 2017-10-05 21:12:00* Test Item Value Reference Range Interpretation Comments Alanine Aminotransferase (ALT/SGPT) (test code = 1742-6) 36 0-55 [facility] CenterTotal Rrvquwh4684-00-73 21:12:00* Test Item Value Reference Range Interpretation Comments Total Protein (test code = 2885-2) 6.8 6.5-8.1 [facility] CenterAlbumin2018-06-16 21:12:00* Test Item Value Reference Range Interpretation Comments Albumin (test code = 1751-7) 3.8 3.5-5.0 [facility] CenterGlobulin2018-06-16 21:12:00* Test Item Value Reference Range Interpretation Comments Globulin (test code = 37930-3) 3.0 2.3-3.5 [facility] CenterAlbumin/Globulin Wbksa6140-21-17 21:12:00 * Test Item Value Reference Range Interpretation Comments Albumin/Globulin Ratio (test code = 1759-0) 1.3 0.8-2.0 [facility] CenterAlkaline Mujybyhvtfi3492-86-27 21:12:00* Test Item Value Reference Range Interpretation Comments Alkaline Phosphatase (test code = 6768-6) 87 40-150 [facility] [id number] 21:11:00* Test Item Value Reference Range Interpretation Comments Urine WBC (test code = 5821-4) 11-20 0-5 [facility] [id number] 21:11:00* Test Item Value Reference Range Interpretation Comments Urine RBC (test code = 36503-6) 6-10 0-5 [facility] Wmlqffqj2465-97-25 21:11:00* Test Item Value Reference Range Interpretation Comments Urine Bacteria (test code = 10117-9) MANY NONE [facility] Epithelial [id number] 21:11:00 * Test Item Value Reference Range Interpretation Comments Urine Epithelial Cells (test code = 88840-2) MODERATE NONE [facility] Amorphous Ewpmxoix6997-97-87 21:11:00* Test Item Value Reference Range Interpretation Comments Urine Amorphous Sediment (test code = 8246-1) FEW FEW [facility] Amorphous Dpytyaii5036-10-46 21:11:00* Test Item Value Reference Range Interpretation Comments Urine Amorphous Sediment (test code = 8246-1) FEW FEW [facility] [id number] 21:01:00* Test Item Value Reference Range Interpretation Comments Urine Color (test code = 5778-6) YELLOW YELLOW [facility] Jfakzvu1684-45-63 21:01:00* Test Item Value Reference Range Interpretation Comments Urine Clarity (test code = 90159-7) SL CLOUDY CLEAR [facility] Specific [id number] 21:01:00 * Test Item Value Reference Range Interpretation Comments Urine Specific [place] (test code = 5811-5) 1.015 1.010-1.02 5 [facility] [id number] 21:01:00* Test Item Value Reference Range Interpretation Comments Urine pH (test code = 77626-1) 7 5-7 [facility] Leukocyte Bvowdzdi8894-27-96 21:01:00* Test Item Value Reference Range Interpretation Comments Urine Leukocyte Esterase (test code = 5799-2) 1+ NEGATIVE [facility] Qhxacja9882-71-98 21:01:00* Test Item Value Reference Range Interpretation Comments Urine Nitrite (test code = 83138-3) NEGATIVE NEGATIVE [facility] Yldzqif0819-37-39 21:01:00* Test Item Value Reference Range Interpretation Comments Urine Protein (test code = 5804-0) TRACE NEGATIVE [facility] Glucose (UA)2017-10-05 21:01:00* Test Item Value Reference Range Interpretation Comments Urine Glucose (UA) (test code = 2349-9) NEGATIVE NEGATIVE [facility] Nqjfqta4568-69-36 21:01:00* Test Item Value Reference Range Interpretation Comments Urine Ketones (test code = 66913-5) NEGATIVE NEGATIVE [facility] Lfgimunitxlj8699-26-52 21:01:00* Test Item Value Reference Range Interpretation Comments Urine Urobilinogen (test code = 86421-0) 0.2 0.2-1 [facility] Qohothbgh3639-37-08 21:01:00* Test Item Value Reference Range Interpretation Comments Urine Bilirubin (test code = 1978-6) NEGATIVE NEGATIVE [facility] Bqjvq2077-28-75 21:01:00* Test Item Value Reference Range Interpretation Comments Urine Blood (test code = 94927-4) 1+ NEGATIVE [facility] Zknbk8944-03-00 20:56:00* Test Item Value Reference Range Interpretation Comments White Blood Count (test code = 6690-2) 13.79 4.8-10.8 [facility] Iypnf2559-99-22 20:56:00* Test Item Value Reference Range Interpretation Comments Red Blood Count (test code = 789-8) 4.87 4.3-5.7 [facility]2018-06-16 20:56:00* Test Item Value Reference Range Interpretation Comments Hemoglobin (test code = 92716-3) 14.8 14.0-18.0 [facility]ematocrit2018-06-16 20:56:00* Test Item Value Reference Range Interpretation Comments Hematocrit (test code = 4544-3) 43.7 38.2-49.6 [facility] Corpuscular Qnhxzw3122-45-47 20:56:00* Test Item Value Reference Range Interpretation Comments Mean Corpuscular Volume (test code = 787-2) 89.7 81-99 [facility] Corpuscular Hcdmdjvtkj5196-65-46 20:56:00* Test Item Value Reference Range Interpretation Comments Mean Corpuscular Hemoglobin (test code = 785-6) 30.4 28-32 [facility] Corpuscular Hemoglobin Concent 2017-10-05 20:56:00* Test Item Value Reference Range Interpretation Comments Mean Corpuscular Hemoglobin Concent (test code = 786-4) 33.9 31-35 [facility] Cell Distribution Lerne3572-95-78 20:56:00* Test Item Value Reference Range Interpretation Comments Red Cell Distribution Width (test code = 74354-6) 13.4 11.7 -14.4 [facility] CenterPlatelet Lfwws4146-74-88 20:56:00* Test Item Value Reference Range Interpretation Comments Platelet Count (test code = 777-3) 208 140-360 [facility]Neutrophils (%) (Auto)2017-10-05 20:56:00 * Test Item Value Reference Range Interpretation Comments Neutrophils (%) (Auto) (test code = 23890-7) 70.6 38.7-80.0 [facility] CenterLymphocytes (%) (Auto)2017-10-05 20:56:00 * Test Item Value Reference Range Interpretation Comments Lymphocytes (%) (Auto) (test code = 736-9) 21.2 18.0-39.1 [facility] (%) (Auto)2017-10-05 20:56:00* Test Item Value Reference Range Interpretation Comments Monocytes (%) (Auto) (test code = 5905-5) 5.7 4.4-11.3 [facility]Eosinophils (%) (Auto)2017-10-05 20:56:00 * Test Item Value Reference Range Interpretation Comments Eosinophils (%) (Auto) (test code = 713-8) 1.6 0.0-6.0 [facility] (%) (Auto)2017-10-05 20:56:00* Test Item Value Reference Range Interpretation Comments Basophils (%) (Auto) (test code = 706-2) 0.5 0.0-1.0 [facility] CenterIM [facility]ANULOCYTES %2017-10-05 20:56:00* Test Item Value Reference Range Interpretation Comments IM GRANULOCYTES % (test code = IM GRANULOCYTES %) 0.4 0.0- 1.0 [facility] CenterNeutrophils # (Auto)2017-10-05 20:56:00* Test Item Value Reference Range Interpretation Comments Neutrophils # (Auto) (test code = 751-8) 9.7 2.1-6.9 [facility] CenterLymphocytes # (Auto)2017-10-05 20:56:00* Test Item Value Reference Range Interpretation Comments Lymphocytes # (Auto) (test code = 13900-1) 2.9 1.0-3.2 [facility] # (Auto)2017-10-05 20:56:00* Test Item Value Reference Range Interpretation Comments Monocytes # (Auto) (test code = 742-7) 0.8 0.2-0.8 [facility]Eosinophils # (Auto)2017-10-05 20:56:00* Test Item Value Reference Range Interpretation Comments Eosinophils # (Auto) (test code = 711-2) 0.2 0.0-0.4 [facility] # (Auto)2017-10-05 20:56:00* Test Item Value Reference Range Interpretation Comments Basophils # (Auto) (test code = 704-7) 0.1 0.0-0.1 [facility] CenterAbsolute Immature Granulocyte (auto 2017-10-05 20:56:00* Test Item Value Reference Range Interpretation Comments Absolute Immature Granulocyte (auto (aileen t code = Absolute Immature Granulocyte (auto) 0.05 0-0.1 [facility] CenterBacterial urine aqmmght2984-14-43 13:07:00* Test Item Value Reference Range Interpretation Comments Urine Culture (test code = 630-4) Organism: ESCHERICHIA COLI [facility]
== END 2020-02-24 19:09 | disposition home or self-care (01) ==
LOC: ER 17:58
DX: S61.452A Open bite of left hand, initial encounter (principal); W54.0XXA Bitten by dog, initial encounter; Y92.008 Other place in unspecified non-institutional (private) residence as the place of occurrence of the external cause; I10 Essential (primary) hypertension; E78.5 Hyperlipidemia, unspecified
CPT/HCPCS: 90714; 99283

== ENCOUNTER → 2020-06-23 | Outpatient (CLI) | payer MEDICARE | LOC: US 11:41 | PROVIDERS: ATTEND Urology | DX: N39.0 Urinary tract infection, site not specified (principal) | CPT/HCPCS: 74018; 76770 ==

== ENCOUNTER → 2020-07-07 | Outpatient (CLI) | payer MEDICARE | LOC: CT 16:41 | PROVIDERS: ATTEND Urology | DX: N20.0 Calculus of kidney (principal) | CPT/HCPCS: 74176 ==

== ENCOUNTER 2020-10-15 12:13 | Emergency (ER) | payer MEDICARE ==
[~2020-10-15] VITALS: Ht 190.5 cm; Wt 111.1 kg
== END 2020-10-15 13:59 | disposition home or self-care (01) ==
LOC: ER 12:36
DX: R31.9 Hematuria, unspecified (principal); I10 Essential (primary) hypertension; E78.5 Hyperlipidemia, unspecified
CPT/HCPCS: 99283